=== PATIENT | male | born 1955 | race Caucasian/White ===

== ENCOUNTER 2022-04-05 20:19 | Outpatient (CLI) | payer MEDICAID, SELFPAY | END 2022-04-05 20:20 | disposition home or self-care (01) | LOC: AMB 04-25 12:31 | PROVIDERS: PCP Family Medicine; Visit Provider Emergency Medicine Emergency Medical Services | DX: E11.649 Type 2 diabetes mellitus with hypoglycemia without coma (principal); R41.82 Altered mental status, unspecified | CPT/HCPCS: A0425; A0427 ==

== ENCOUNTER 2022-04-05 21:06 | Emergency (ER) | payer MEDICAID, SELFPAY ==
--- NOTE | 2022-04-05 21:08 | ED.GENADULT ---
HPI - General Adult General Chief complaint: Unspecified Complaint, Adult Stated complaint: Low Blood Sugar, Fall Time Seen by Provider: 04/05/22 21:08 History of Present Illness HPI narrative: This 66-year-old male comes in by ambulance initially with a trauma team activation. The patient was not responding at home in the garage when the ambulance arrived. They found his blood glucose to be at 40. An IV was established and he received 200 mL of D10. His glucose improved to around 150 and he responded completely except he could not remember what happened until just a few minutes before arriving here. He does not report any pain or injury event. He states that he feels back to normal at this time. He does use insulin 35 units and takes oral medication also. The patient does speak Hong Konger but has some difficulty understanding at times because of anguish being his 2nd language. Review of Systems Status of ROS: Reports: 10 or more systems reviewed and unremarkable except as noted in History and below Narrative: Constitutional: No fevers, no weight gain or loss. Eyes: No discharge. No vision changes. HENT: No congestion, no sore throat, no ear pain. Cardiovascular: No chest pain, no palpitations. Respiratory: No shortness of breath, no wheezes, no cough. Gastrointestinal: No abdominal pain, no vomiting, no diarrhea. Genitourinary: No dysuria, no hematuria. Musculoskeletal: Normal range of motion. Skin: No rashes, no pruritis. Neurological: No dizziness, weakness, sensory change, speech change. Endo/Heme/Allergies: No bruising or bleeding. No polydipsia. Pysch: no suicidality, no anxiety, no insomnia. All other systems reviewed and are negative. [facility] Medical History (Updated 04/05/22 @ 22:12 by Angelo Yates MD) DM (diabetes mellitus), type 2 Social History Smoking Status: Never smoker Do you use any of these nicotine containing products: None How often do you have a drink containing alcohol: never AUDIT-C Alcohol total score: 0 Non-prescribed substance use: denies use Exam Narrative: Exam Narrative: Constitutional: Well-developed, well-nourished, no acute distress. HEENT: Normocephalic, atraumatic. Neck: Normal range of motion. Nontender. Supple. Heart: Regular. No murmurs. Normal rate. Intact distal pulses. Lungs: Clear to auscultation. No chest discomfort. No wheezes, rhonchi, or rales. Abdomen: Normal bowel sounds. Nontender. No rebound tenderness. Genitalia: Deferred. Back: No midline tenderness. Normal range of motion. Extremities: Normal range of motion. No injury. Skin: Intact. No rash. Warm. No erythema or pallor. Neurologic: No altered sensation. No weakness. Alert and oriented. [id number] is normal. Strength is equal bilaterally in upper and lower extremities. No facial asymmetry. Psychiatric: No suicidality. No anxiety or depression. No insomnia. Nursing notes and vitals signs are reviewed. Medical Decision Making MDM Narrative Medical decision making narrative: This patient arrives with a trauma team activation but there was really was no trauma so this was discontinued. He had a hypoglycemic event which resolved after receiving IV dextrose. He continues to feel normal. Labs were drawn here which showed a glucose in normal range. The patient states that he is taking 35 units of insulin daily. I advised him to decrease this to 30 or even 25 units and follow-up with his primary physician. Family members have arrived and state that he has had previous hypoglycemic events. The patient states that he did not take anything to eat this evening and was working out in the shed. He is okay to be discharged home and encouraged strongly to follow up with his primary physician. Lab Data Labs: Lab Results 04/05/22 04/05/22 Range/Units 21:13 21:13 WBC 11.88 H (4.50-11.00) K/uL RBC 4.41 (4.30-5.90) m/uL Hgb 11.2 L (13.5-17.5) gm/dL Hct 35.3 L (37.0-53.0) % MCV 80 (80-100) fL MCH 25 L (26-34) pg MCHC 32 (32-36) gm/dL RDW Coeff of Kiesha 14.6 (11.5-15.5) % Plt Count 369 (140-440) K/uL Neut % (Auto) 82.9 H (42.0-72.0) % Lymph % (Auto) 12.6 L (20-44) % [place] % (Auto) 3.8 (0.0-11.0) % Eos % (Auto) 0.2 (0.0-7.0) % Baso % (Auto) 0.2 (0.0-3.0) % Neut # (Auto) 9.80 H (1.7-7.0) K/uL Lymph # (Auto) 1.50 (0.90-2.90) K/uL [place] # (Auto) 0.50 (0.00-0.90) K/UL Eos # (Auto) 0.00 (0.00-0.50) K/uL Baso # (Auto) 0.00 (0.00-0.30) K/uL Abs Immat Gran (auto) 0.03 (0.00-0.30) K/uL Sodium 134 L (135-149) mmol/L Potassium 4.2 (3.6-5.1) mmol/L Chloride 99 (96-114) mmol/L Carbon Dioxide 27 (20-32) mmol/L BUN 12 (7-30) mg/dL Creatinine 0.5 (0.5-1.5) mg/dL Estimated GFR 114 ml/min Glucose 116 H (60-115) mg/dL Calcium 8.7 (8.4-10.6) mg/dL Discharge Plan Discharge Clinical Impression: Hypoglycemic reaction Condition: Improved Additional Instructions: Hypoglycemic reaction. Decrease insulin by 5-10 units and follow-up with primary physician to review glucose management medications. Return if recurrent symptoms happen. Follow Up/Referrals: Lopez Neves MD [Primary Care Provider] - Stand Alone Forms: [employer] Info Instructions
[2022-04-05 21:20] LABS: Basophils Percent Auto 0.2 % (0.0-3.0); Eosinophils Percent Auto 0.2 % (0.0-7.0); Hematocrit 35.3 % (37.0-53.0); Hemoglobin* 11.2 gm/dL (13.5-17.5); Immature Granulocytes Abs Auto 0.03 K/uL (0.00-0.30); Lymphocytes Percent Auto 12.6 % (20-44); Mean Corpuscular HGB Conc 32 gm/dL (32-36); Mean Corpuscular Hemoglobin 25 pg (26-34); Mean Corpuscular Volume 80 fL (80-100); Monocytes Percent Auto 3.8 % (0.0-11.0); Neutrophils Percent Auto 82.9 % (42.0-72.0); Platelet Count* 369 K/uL (140-440); RDW Coefficient of Variation % 14.6 % (11.5-15.5); Red Blood Count 4.41 m/uL (4.30-5.90); White Blood Count* 11.88 K/uL (4.50-11.00)
[2022-04-05 21:23] LABS: Slide Review Reflex No
[2022-04-05 21:31] LABS: Chloride* 99 mmol/L (96-114); Potassium* 4.2 mmol/L (3.6-5.1); Sodium* 134 mmol/L (135-149)
[2022-04-05 21:33] LABS: Creatinine* 0.5 mg/dL (0.5-1.5); Estimated Glomerular Filt Rate 114 ml/min
[2022-04-05 21:34] LABS: Blood Urea Nitrogen* 12 mg/dL (7-30); Calcium* 8.7 mg/dL (8.4-10.6); Carbon Dioxide* 27 mmol/L (20-32); Glucose* 116 mg/dL (60-115)
[2022-04-05 22:20] VITALS: PULSE 78; RESP 18; TEMP 36.1; O2SAT 98
== END 2022-04-05 22:30 | disposition home or self-care (01) ==
LOC: ED 22:14
PROVIDERS: Emergency Provider Emergency Medicine Emergency Medical Services; PCP Family Medicine
DX: E11.649 Type 2 diabetes mellitus with hypoglycemia without coma (principal)
CPT/HCPCS: 36415; 80048; 85025; 99283; 99284; 99291; G0390

== ENCOUNTER 2022-06-15 14:36 | Outpatient (CLI) | payer MEDICAID, SELFPAY ==
--- OUTSIDE RECORDS SUMMARY | 2022-06-21 10:34 | XMS_ITS | Encounter Summary ---
[...] bivalent booster, PF, 30 mcg/0.3 mL dose ([employer]) 06/07/2022?0.3 COVID-19, mRNA, LNP-S, PF, 30 mcg/0.3 mL dose ([employer]) 07/19/2021?0.3 mL COVID-19, mRNA, LNP-S, PF, 30 mcg/0.3 mL dose, soila-sucrose ([employer]) 12/27/2021?0.3 01/10/2022?0.3 Social History None recorded. Functional Status Unknown. 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 History of Present Illness Note: <div>Requesting Covid 19 vaccine, bivalent last booster 09/18/2020</div><div>
</div> Review of Systems None recorded. Physical Exam ? Notes: <div>A&O x 3, No acute distr ess. Well-appearing.</div>
--- OUTSIDE RECORDS SUMMARY | 2022-06-21 10:34 | XMS_ITS | Clinical Summary ---
:1955 Author Organization [employer] [place] [address] Care Team Providers Name Role Phone Hai Engle MD Primary Care Provider [phone] Allergies Active Allergy Reactions Severity Noted [...] once daily. tabletIndications: Vitamin B12 deficiency Insulin Hana, As directed. For 100 Each 08/22/20 Active [...] use of insulin (HC) insulin NPH Inject 20-30 20 mL 05/28/20 [...] Take 1 Tablet (2 120 Tablet 0 06/18/20 Active (Dilaudid) 2 mg mg) by mouth 22 tabletIndications: every 6 hours if Neuropathic pain needed for Pain. For chronic leg pain insulin For administering 200 Each 08/22/20 Di [...] 1 Tablet (2 120 Tablet 0 05/18/20 Discontinued (Dilaudid) 2 mg mg) by mouth [...] Encounters Date Type Specialty Care Team Description 06/16/2022 Refill Hai Engle Refil l Request (Jose DENNIS (Dilaudid) 2 mg tablet) 05/29/2022 Telephone Hai Engle Resul ts MD 05/28/2022 Office Visit Hai Engle Diabe tes MD 05/28/2022 Travel 05/17/2022 Refill Lopez Neves Refjayant Request (Jose DENNIS (Dilaudid) 2 mg tablet) 04/16/2022 Refill Lopez Neves, Refill Request (Jose DENNIS (Dilaudid) 2 mg tablet) from Last 3 Months Immunizations Name Administration Dates Next Due COVID-19 vaccine (Moderna 01/05/2021, 12/08/2020 100mcg/0.5mL) PF, MDV COVID-19 vaccine ([employer] 07/19/2021 30mcg/0.3mL) PF, MDV Hepatitis A (Adult) [...] Description 08/23/2022 [place] [address] [address] [place], [place] [address] (Wo rk) 08/28/2022 Office Visit Hai Engle MD [address] [place], [place] [address] (Wo rk) Health Maintenance Due Date Last Done Comments AAA screening age 55-77 2012 Pneumococcal series for age 65+ (2 12/29/2014 12/29/2013, 0 04/16/2012 - PCV) Zoster (shingles) series for age 0501/20/2019 11/25/2018 50+ (2 of 2) COVID-19 vaccine series (5 - 02/21/2022 12/27/2021, 021, Booster for Moderna series) 01/05/2021, Addition al history exists Influenza for age 65+ 2022 06/12/2021, 06/06/2020, 07/06/2019, Additional history exists Depression screening for age 12+ 08/22/2022 08/22/2021, 10/2019, 06/06/2020, Additional history exists BMI (ht and wt on same day) for 11/21/2022 11/21/2021, 08/09, age 18+ 07/11/2021, Additional history exists Colonoscopy through age 75 05/19/2023 05/19/2013, 09/10/201 3 Lipids for age 45-75 05/28/2027 05/28/2022, 11/21/2021, 06/12/2021, Additional history exists Tetanus booster 11/25/2028 11/25/2018, 04/03/2012 Tdap Completed 04/03/2012 Hepatitis C screening for age Completed 11/21/2021 18-79 Procedures Procedure Name Priority Date/Time Associated Comments [...] REFLEX MEASURED LDL (05/28/2022 10:54 AM CDT) [facility] Method Time Signature CHOLESTEROL,TOTAL 111 100 - 199 05/28/2022 [facility] TH mg/dL 9:29 PM CDT LABORATORY-[facility] TRAL LABORATORY TRIGLYCERIDES 75 <150 05/28/2022 [facility] mg/dL 9:29 PM CDT LAB[facility]ATORY-[facility] TRAL LABORATORY HDL CHOLESTEROL 41 >40 mg/dL 05/28/2022 [facility] 9:29 PM CDT LABORATORY-[facility] TRAL LABORATORY NON-HDL 70 <145 05/28/2022 [facility] CHOLESTEROL mg/dl 9:29 PM CDT LABORATORY-[facility] TRAL LABORATORY CHOL/HDL RATIO 2.71 <4.50 05/28/2022 [facility] 9:29 PM CDT LABORATORY-[facility] TRAL LABORATORY LDL CHOLESTEROL 55 <=130 05/28/2022 [facility] mg/dL 9:29 PM CDT LABORAT[facility] TRAL LABORATORY VLDL CHOLESTEROL 15 <=30 05/28/2022 [facility] mg/dL 9:29 PM CDT LABORAT[facility] TRAL LABORATORY PROVIDER ORDERED RANDOM 05/28/2022 [facility] STATUS 9:29 PM CDT LABORAT[facility] TRAL LABORATORY Specimen Anatomical Collection Method / Collection Time Recei bowen Time (Source) Location / Volume Laterality Blood BLOOD SPECIMEN / Venipuncture / 05/28/2022 10:54 05/28 Unknown Unknown AM CDT 11:34 AM CDT Hai Engle MD CHEMISTRY Performing Organization Address City/State/ZIP Code Phon e Number [employer] [address] [place] [address] LABORATORY-CENTRAL 2000 LABORATORY URINE ALBUMIN TO CREATININE RATIO, RANDOM (05/28/2022 10:54 AM CDT) P athologist Signature ALB RAND URINE <5.0 mg/L 05/29/2022 [facility] AM [facility] LAB[facility]-CENT RAL LABORATORY CREATININE,URIN 0.32 g/L 05/29/2022 [facility] [employer] E 4:55 AM CDT LABORATORY-CENT RAL LABORATORY ALBUMIN TO 05/29/2022 [facility] [employer] CREATININE 4:55 AM CDT LABORATORY-CENT RATIO,RAND UR RAL LABORATORY Comment: Urine Albumin below measurement range, unable to calculate Specimen Anatomical Collection Method Collection Time Receive d Time (Source) Location / / Volume Laterality Urine URINE SPECIMEN / Non-Blood / 05/28/2022 10:54 022 Unknown Unknown AM CDT 10:54 AM CDT Narrative [facility] LABORATORY-CENTRAL LABORAT ORY - 05/29/2022 4:55 AM [...] Organization Address City/State/ZIP Code Phon e Number [facility] [address] [place] [address] LABORATORY-CENTRAL 2000 LABORATORY ALT (SGPT) (05/28/2022 10:54 AM CDT) athologist Signature ALT (SGPT) 16 8 - 45 IU/L 05/28/2022 [facility] 9:29 PM CDT LAB[facility]ATORY-[facility] LABORATORY Specimen Anatomical Collection Method / Collection Time Recei bowen Time (Source) Location / Volume Laterality Blood BLOOD SPECIMEN / Venipuncture / 05/28/2022 10:54 05/28 Unknown Unknown AM CDT 11:34 AM CDT Hai Engle MD CHEMISTRY Performing Organization Address [facility] Code Phon e Number [facility] [address] [place] [address] LABORATORY-CENTRAL 2000 LABORATORY HEMOGLOBIN A1C MONITORING (POCT) (05/28/2022 10:54 AM CDT) athologist Signature HEMOGLOBIN A1C 5.8 <=6.4 % 05/28/2022 [facility] MONITORING 11:03 AM CDT [facility] Specimen Anatomical Collection Method / Collection Time Recei bowen Time (Source) Location / Volume Laterality Blood BLOOD SPECIMEN / Venipuncture / 05/28/2022 10:54 05/28 Unknown Unknown AM CDT 10:54 AM CDT [facility] - 2021 11:03 AM CDT ? (<=6.9%) [...] Organization Address City/State/ZIP Code Phon e Number [facility] [address] [place] [address] (ABNORMAL) BASIC METABOLIC PANEL (05/28/2022 10:54 AM CDT) [facility] Method Time Signature SODIUM 136 135 [...] ANION GAP 11 5 - 18 05/28/2022 [facility] 9:27 PM CDT LABORATORY-[facility] TRAL LABORATORY GLUCOSE 140 (H) 65 - 100 05/28/2022 [facility] mg/dL 9:27 PM CDT LABORATORY-[facility] TRAL LABORATORY CALCIUM 8.9 8.5 - 10.5 05/28/2022 [facility] mg/dL 9:27 PM CDT LABORATORY-[facility]ILY TRAL LABORATORY BUN 15 8 - 25 05/28/2022 [facility] mg/dL 9:27 PM CDT LABORATORY-[facility] TRAL LABORATORY CREATININE 0.69 (L) 0.72 - 05/28/2022 [facility] 1.25 mg/dL 9:27 PM CDT LABORATORY-[facility] TRAL LABORATORY BUN/CREAT RATIO 22 (H) 10 - 20 05/28/2022 [facility] 9:27 PM CDT LABORATORY-[facility] TRAL LABORATORY eGFR >90 >90 05/28/2022 [facility] mL/min/1.7 9:27 PM CDT LABORATORY-EMILY 3m2 [...] Organization Address City/State/ZIP Code Phon e Number [facility] [address] [place] [address] LABORATORY-CENTRAL 2000 LABORATORY from Last 3 Months Insurance Payer Benefit Plan / Subscriber ID Effective Dates Phone Addre ss Type Group WC WORKERS COMP WC CARDOZO [id number] 2020-Prese [address] [place] [address] MEDICAID [place] MEDICA[place] [id number] 2019-Presen [address] [address] t [place] [address] [employer] [id number] 2021- [facility] [address] ATTN: [place] [address] Advance Directives Latest Code Status on File Code Status Date Activated Date Inactivated Comments Full Code 04/22/2012 2:22 PM 04/30/2012 3:32 PM Full Code 04/15/2012 9:20 PM 04/22/2012 2:22 PM Care Teams Category Analyst Relationship Specialty Start Date End Date Hai Engle MD PCP - General Family Practice 05/18/22 [address] [place] [address]
--- OUTSIDE RECORDS SUMMARY | 2022-06-21 10:34 | XMS_ITS ---
[...] SARS-CoV-2 mRNA Vaccin e MARVIN Silver: [address] [place] [address], Ph. 12/27/2021 Administration of Second Dose of SARS-Co V-2 mRNA Vaccine; Administration of SARS-CoV-2 mRNA Vaccine [facility]IN [facility]: [address] [facility] [place] [address], Ph. 07/19/2021 Administration of SARS-CoV-2 mRNA Vaccin e MARVIN Silver: [address] [place] [address], Ph. Social History None recorded. Vaccine List Vaccine Type COVID-19, mRNA, LNP-S, bivalent booster, PF, 30 mcg/0.3 mL dose ([employer]) 06/07/2022?0.3 COVID-19, mRNA, LNP-S, PF, 30 mcg/0.3 mL dose ([employer]) 07/19/2021?0.3 mL COVID-19, mRNA, LNP-S, PF, 30 mcg/0.3 mL dose, soila-sucrose ([employer] M[employer]) 12/27/2021?0.3 01/10/2022?0.3 Plan of Care Patient Instructions May take Ibuprofen or Tylenolprn. Use i ce to arm prn. Reminders Provider Appointments None recorded. ? ? Lab None recorded. ? ? Referral None recorded. ? ? Procedures None recorded. ? ? Surgeries None recorded. ? ? Imaging None recorded. ? ? Vitals None recorded.
--- OUTSIDE RECORDS SUMMARY | 2022-07-30 08:09 | XMS_ITS ---
[...] SARS-CoV-2 mRNA Vaccin e MARVIN Silver: [address] [place] [address], Ph. 12/27/2021 Administration of Second Dose of SARS-Co V-2 mRNA Vaccine; Administration of SARS-CoV-2 mRNA Vaccine MARVIN Silver: [address] [place] [address], Ph. 07/19/2021 Administration of SARS-CoV-2 mRNA Vaccin e MARVIN Silver: [address] [place] [address], Ph. Social History None recorded. Vaccine List Vaccine Type COVID-19, mRNA, LNP-S, bivalent booster, PF, 30 mcg/0.3 mL dose ([employer] 06/07/2022?0.3 COVID-19, mRNA, LNP-S, PF, 30 mcg/0.3 mL dose ([employer] 07/19/2021?0.3 mL COVID-19, mRNA, LNP-S, PF, 30 mcg/0.3 mL dose, soila-sucrose ([employer] 12/27/2021?0.3 01/10/2022?0.3 Plan of Care Patient Instructions May take Ibuprofen or Tylenolprn. Use i ce to arm prn. Reminders Provider Appointments None recorded. ? ? Lab None recorded. ? ? Referral None recorded. ? ? Procedures None recorded. ? ? Surgeries None recorded. ? ? Imaging None recorded. ? ? Vitals None recorded.
--- OUTSIDE RECORDS SUMMARY | 2022-07-30 08:09 | XMS_ITS | Encounter Summary ---
[...] bivalent booster, PF, 30 mcg/0.3 mL dose (PfizerOrckestraBioNTech) 06/07/2022?0.3 COVID-19, mRNA, LNP-S, PF, 30 mcg/0.3 mL dose (Pf[employer]ck[employer]BioNTech) 07/19/2021?0.3 mL COVID-19, mRNA, LNP-S, PF, 30 mcg/0.3 mL dose, soila-sucrose ([employer]) 12/27/2021?0.3 01/10/2022?0.3 Social History None recorded. Functional Status Unknown. Past Encounters 06/06/2022 Administration of SARS-CoV-2 mRNA Lucio Carbajal, BAKERY ASSISTANT: [address] [place] [address], Ph. History of Present Illness Note: <div>Requesting Covid 19 vaccine, bivalent last booster 09/18/2020</div><div>
</div> Review of Systems None recorded. Physical Exam ? Notes: <div>A&O x 3, No acute distr ess. Well-appearing.</div>
--- OUTSIDE RECORDS SUMMARY | 2022-07-30 08:09 | XMS_ITS | Clinical Summary ---
:1955 Author Organization [employer] [facility] [place] [address] Care Team Providers Name Role Phone Hai Engle MD Primary Care Provider [phone] Allergies Active Allergy Reactions Severity Noted [...] once daily. tabletIndications: Vitamin B12 deficiency Insulin [place], As directed. For 100 Each 08/22/20 Active [...] Take 1 Tablet (2 120 Tablet 0 07/11/20 Active (Dilaudid) 2 mg mg) by mouth 22 tabletIndications: every 6 hours if Neuropathic pain needed for Pain. For chronic leg pain-fill on or after 07/16/22 multivitamin with 0 06/15/20 Ac tive folic acid 0.4 mg 22 (Tab-A-Shell) HYDROmorphone Take 1 Tablet (2 120 Tablet 0 06/18/20 Discontinued (Dilaudid) 2 mg mg) by mouth 22 022 ( Reorder tabletIndications: every 6 hours if (E-cancel not Neuropathic pain needed for Pain. sent)) For chronic leg pain amoxicillin-clavul Take 1 Tablet by 14 Tablet 0 07/13/2007/10 Discontinued anate 875-125 mg mouth two times 22 022 (*Med tablet daily with meals com plete/Regime (AUGMENTIN)Indicat for 7 days. n ions: Diabetic compl ete/Level foot infection of ca re change) (HC) Active Problems Problem Noted Date Type 2 [...] Encounters Date Type Specialty Care Team Description 07/20/2022 Office Visit Tim Rosenberg, Follow Up (toe) 07/20/2022 Travel 07/13/2022 Office Visit Tim Rosenberg, Toe Jonathan n/problem (Left 2nd MD toe. Had been black, has been treating w ith bacitracin zinc ointment a nd tegaderm. Toe is just a l ittle red currently) 07/13/2022 Travel 07/11/2022 Refill Hai Engle, Refil l Request (dilaudzeke) 06/16/2022 Refill Hai Engle, Refil l Request (Jose DENNIS (Dilaudid) 2 mg tablet) 05/29/2022 Telephone Hai Engle Resul ts MD 05/28/2022 Office Visit Hai Engle Diabe tes MD 05/28/2022 Travel 05/17/2022 Refill Lopez Neves, Refill Request (rFankirpmari DENNIS (Dilaudid) 2 mg tablet) from Last 3 Months Immunizations Name Administration Dates Next Due COVID-19 vaccine (Moderna 01/05/2021, 12/08/2020 100mcg/0.5mL) PF, MDV COVID-19 vaccine ([employer] 06/07/2022 30mcg/0.3mL) 12YO+ BIVALENT BOOSTER PF, MDV COVID-19 vaccine ([employer] 01/10/2022 30mcg/0.3mL) 12YO+ JACINTA-SUCROSE PF, MDV COVID-19 vaccine ([employer] 07/19/2021 30mcg/0.3mL) PF, MDV Hepatitis A (Adult) 11/25/2018 Hepatitis B (Adult) 08/25/2015 Influenza, IIV3 (Age >=3 years) 07/02/2013, 04/06/2012 Influenza, IIV4 06/12/2021, 06/06/2020, 07/06/2019, 06/23/2018, 06/05/2017, 06/18/2016, 08/25/2015 Influenza, IIV4 (=>6mos) MDV 06/25/2022, 06/24/2018, 014 MMR 11/25/2018 Pneumococcal Poly,23-Valent 12/29/2013, 04/16/2012 (Pneumovax) [...] in contact with No / Unsu re 07/20/2022 2:46 PM DRIER BELT CONVEYOR someone who was confirmed or suspected to have Coronavirus/COVID-19? Obstetrics History Last Filed Vital Signs Vital Sign Reading Time Taken Comments Blood Pressure 136/77 07/20/2022 3:02 PM DRIER BELT CONVEYOR Pulse 61 07/20/2022 3:00 PM DRIER BELT CONVEYOR Temperature 36.6 ??C (97.8 ??F) 07/13/2022 2:30 PM CDT Respiratory Rate 20 03/19/2022 12:06 PM CDT Oxygen Saturation 100% 07/20/2022 3:00 PM DRIER BELT CONVEYOR Inhaled Oxygen Concentration - - Weight 80.9 kg (178 lb 6.4 oz) 07/20/2022 3:00 PM DRIER BELT CONVEYOR Height 167.6 cm (5' 6) 11/21/2021 9:43 AM CDT Body Mass Index 28.79 11/21/2021 9:43 AM CDT Plan of Treatment Upcoming Encounters Date Type Specialty Care Team Description 08/23/2022 [place] [address] [address] [place], [place] [address] (Wo rk) 08/28/2022 Office Visit Hai Engle MD [address] [place] [address] (Wo rk) Health Maintenance Due Date Last Done Comments HIV for age 15-65 1972 AAA screening age 55-77 2012 Pneumococcal series for age 65+ (2 12/29/2014 12/29/2013, 0 04/16/2012 - PCV) Zoster (shingles) series for age 0501/20/2019 11/25/2018 50+ (2 of 2) Depression screening for age 12+ 08/22/2022 08/22/2021, [...] Completed 11/21/2021 18-79 COVID-19 vaccine series Completed 06/07/2022, 01/10/2022, 07/19/2021, Additional history exists Influenza for age 65+ Completed 06/25/2022, 06/12/2021, 06/06/2020, Additional history exists Procedures Procedure Name Priority [...] REFLEX MEASURED LDL (05/28/2022 10:54 AM CDT) [facility] Method Time Signature CHOLESTEROL,TOTAL 111 100 - 199 05/28/2022 [facility] mg/dL 9:29 PM CDT LABORATORY-EMILY TRAL LABORATORY TRIGLYCERIDES 75 <150 05/28/2022 [facility] mg/dL 9:29 PM CDT LABORATORY-EMILY TRAL LABORATORY HDL CHOLESTEROL 41 >40 mg/dL 05/28/2022 [facility] 9:29 PM CDT LABORATORY-EMILY TRAL LABORATORY NON-HDL 70 <145 05/28/2022 [facility] CHOLESTEROL mg/dl 9:29 PM CDT LABORATORY-EMILY TRAL LABORATORY CHOL/HDL RATIO 2.71 <4.50 05/28/2022 [facility] 9:29 PM CDT LABORATORY-EMILY TRAL LABORATORY LDL CHOLESTEROL 55 <=130 05/28/2022 [facility] mg/dL 9:29 PM CDT LABORATORY-EMILY TRAL LABORATORY VLDL CHOLESTEROL 15 <=30 05/28/2022 [facility] mg/dL 9:29 PM CDT LABORATORY-EMILY TRAL LABORATORY PROVIDER ORDERED RANDOM 05/28/2022 [facility] STATUS 9:29 PM CDT LABORATORY-EMILY TRAL LABORATORY Specimen Anatomical Collection Method / Collection Time Recei bowen Time (Source) Location / Volume Laterality Blood BLOOD SPECIMEN / Venipuncture / 05/28/2022 10:54 05/28 Unknown Unknown AM CDT 11:34 AM CDT aHi Engle MD CHEMISTRY Performing Organization Address City/State/ZIP Code Phon e Number [facility] [address] [place] [address] LABORATORY-CENTRAL 2000 LABORATORY URINE ALBUMIN TO CREATININE RATIO, RANDOM (05/28/2022 10:54 AM CDT) P athologist Signature ALB RAND URINE <5.0 mg/L 05/29/2022 [facility] 4:55 AM CDT LABORATORY-CENT RAL LABORATORY CREATININE,URIN 0.32 g/L 05/29/2022 [facility] E 4:55 AM CDT LABORATORY-CENT RAL LABORATORY ALBUMIN TO 05/29/2022 [facility] CREATININE 4:55 AM CDT LABORATORY-CENT RATIO,RAND UR RAL LABORATORY Comment: Urine Albumin below measurement range, unable to calculate Specimen Anatomical Collection Method Collection Time Receive d Time (Source) Location / / Volume Laterality Urine URINE SPECIMEN / Non-Blood / 05/28/2022 10:54 022 Unknown Unknown AM CDT 10:54 AM CDT Narrative [facility] LABORATORY-CENTRAL LABORAT ORY - 05/29/2022 4:55 AM [...] Organization Address City/State/ZIP Code Phon e Number [facility] [address] [place] [address] LABORATORY-CENTRAL 2000 LABORATORY ALT (SGPT) (05/28/2022 10:54 AM CDT) athologist Signature ALT (SGPT) 16 8 - 45 IU/L 05/28/2022 [facility] 9:29 PM CDT LABORATORY-[facility] LABORATORY Specimen Anatomical Collection Method / Collection Time Recei bowen Time (Source) Location / Volume Laterality Blood BLOOD SPECIMEN / Venipuncture / 05/28/2022 10:54 05/28 Unknown Unknown AM CDT 11:34 AM CDT Hai Engle MD CHEMISTRY Performing Organization Address City/State/ZIP Code Phon e Number [facility] [address] [place] [address] LABORATORY-CENTRAL 2000 LABORATORY HEMOGLOBIN A1C MONITORING (POCT) (05/28/2022 10:54 AM CDT) athologist Signature HEMOGLOBIN A1C 5.8 <=6.4 % 05/28/2022 [facility] MONITORING 11:03 AM CDT [place] (POCT) [facility] Specimen Anatomical Collection Method / Collection Time Recei bowen Time (Source) Location / Volume Laterality Blood BLOOD SPECIMEN / Venipuncture / 05/28/2022 10:54 05/28 Unknown Unknown AM CDT 10:54 AM CDT [facility] - 2021 11:03 AM CDT ? [...] Organization Address City/State/ZIP Code Phon e Number [facility] [address] [place] [address] (ABNORMAL) BASIC METABOLIC PANEL (05/28/2022 10:54 AM CDT) [facility] Method Time Signature SODIUM 136 135 [...] GLUCOSE 140 (H) 65 - 100 05/28/2022 [facility] mg/dL 9:27 PM CDT LABORATORY-EMILY TRAL LABORATORY CALCIUM 8.9 8.5 - 10.5 05/28/2022 [facility] mg/dL 9:27 PM CDT LABORATORY-EMILY TRAL LABORATORY BUN 15 8 - 25 05/28/2022 [facility] mg/dL 9:27 PM CDT LABORATORY-EMILY TRAL LABORATORY CREATININE 0.69 (L) 0.72 - 05/28/2022 [facility] 1.25 mg/dL 9:27 PM CDT LABORATORY-EMILY [...] Address City/State/ZIP Code Phon e Number [email or web address] [address] [place] [address] LABORATORY-CENTRAL 2000 LABORATORY from Last 3 Months Insurance Payer Benefit Plan / Subscriber ID Effective Dates Phone Addre ss Type Group WC WORKERS COMP WC CARDOZO [id number] 2020-Prese [address] [place] [address] MEDICAID [place] MEDICAID [place] [id number] 2019-Presen [address] [address] t [place] [address] [employer] [id number] 2021- [facility] [address] ATTN: [place] [address] Advance Directives Latest Code Status on File Code Status Date Activated Date Inactivated Comments Full Code 04/22/2012 2:22 PM 04/30/2012 3:32 PM Full Code 04/15/2012 9:20 PM 04/22/2012 2:22 PM Care Teams End Lathe Operator Relationship Specialty Start Date End Date Hai Engle MD PCP - General Family Practice 05/18/22 [address] [place] [address]
== END 2022-06-15 14:37 | disposition home or self-care (01) ==
LOC: AMB 07-30 08:07
PROVIDERS: PCP Family Medicine; Visit Provider Family Medicine
DX: I46.9 Cardiac arrest, cause unspecified (principal)
CPT/HCPCS: A0425; A0433

== ENCOUNTER 2022-06-15 15:08 | Emergency (ER) | payer MEDICAID, SELFPAY ==
[2022-06-15] VITALS (7 sets, daily range): BP systolic 107–151; BP diastolic 62–76; PULSE 66–75; RESP 12–18; TEMP 36.4; O2SAT 97–100; BMI 29.2
--- OUTSIDE RECORDS SUMMARY | 2022-06-15 15:55 | XMS_ITS | Clinical Summary ---
:1955 Author Organization [facility] [place] [address] Care Team Providers Name Role Phone Hai Engle MD Primary Care Provider [phone] Allergies Active Allergy Reactions Severity Noted Date Comments Ibuprofen Nausea Only 06/06/2012 Medications Medication Sig Dispensed Refills Start End Status Date Date aspirin enteric Take 1 tablet by 0 06/15/20 Active coated (ECOTRIN) mouth once daily 16 325 mg with a meal. tabletIndications: Mouth droop due to facial weakness mupirocin 2% Apply topically 30 g 5 07/06/20 A ctive topical (BACTROBAN to affected 19 OINTMENT) area(s) 2 times ointmentIndication daily. Until s: Leg ulcer, wound has healed right, limited to breakdown of skin (HC) cyanocobalamin Take 1 Tablet 30 Tablet 0 12/06/19 A ctive (Vitamin B-12) (1,000 mcg) by 21 1,000 mcg mouth once daily. tabletIndications: Vitamin B12 deficiency Insulin Union, As directed. For 100 Each 08/22/20 Active Disposable, ([place]asta administering 21 Pen Needle) 32 insulin at home gauge x twice daily. Indications: Type 2 diabetes mellitus with diabetic polyneuropathy, with long-term current use of insulin (HC) lancets (Microlet Test 1-2 times 100 Each 4 08/22/20 Active Lancet)Indications per day. 21 : Type 2 diabetes mellitus with diabetic polyneuropathy, with long-term current use of insulin (HC) simvastatin Take 1 Tablet (20 90 tablet. 3 08/22/20 Active (ZOCOR) 20 mg mg) by mouth at 21 tabletIndications: bedtime. Hyperlipidemia, unspecified hyperlipidemia type gabapentin Take 2 Capsules 540 capsule. 2 10/18/19 Active (NEURONTIN) 400 mg (800 mg) by mouth 22 capsuleIndications 3 times daily. : Neuropathic pain Wait until they call for this. metFORMIN Take 1 Tablet 180 tablet. 2 10/18/19 Acti ve (GLUCOPHAGE) 1,000 (1,000 mg) by 22 mg mouth 2 times tabletIndications: daily with meals. Type 2 diabetes mellitus with diabetic polyneuropathy, with long-term current use of insulin (HC) lisinopriL Take 1 Tablet (5 90 tablet. 2 10/18/19 A ctive (PRINIVIL; mg) by mouth once 22 ZESTRIL) 5 mg daily. tabletIndications: Essential hypertension multivitamin with Take 1 Tablet by 90 Tablet 2 11/22/19 Active folic acid 0.4 mg mouth once daily. 22 (Tab-A-Shell)Indica tions: Type 2 diabetes mellitus with diabetic polyneuropathy, with long-term current use of insulin (HC) HYDROmorphone Take 1 Tablet (2 120 Tablet 0 05/18/20 Active (Dilaudid) 2 mg mg) by mouth 22 tabletIndications: every 6 hours if Neuropathic pain needed for Pain. For chronic leg pain insulin NPH Inject 20-30 20 mL 05/28/20 Activ e isophane, U-100, units SQ before 22 (NovoLIN N NPH breakfast and U-100 Insulin) 100 10-20 units at unit/mL susp dinner injectionIndicatio ns: Type 2 diabetes mellitus with diabetic nephropathy, with long-term current use of insulin (HC), Type 2 diabetes mellitus with diabetic polyneuropathy, with long-term current use of insulin (HC) insulin For administering 200 Each 05/28/20 Ac tive syringe-needle insulin at home. 22 u-100 0.3 mL 31 Currently gauge x injecting twice 01/22Indications: daily Type 2 diabetes mellitus with diabetic nephropathy, with long-term current use of insulin (HC), Type 2 diabetes mellitus with diabetic polyneuropathy, with long-term current use of insulin (HC) blood sugar TrueBalance test 100 Each 05/28/20 A ctive diagnostic (Blood strips. Test 1-2 22 Glucose Test) times per day. stripIndications: Type 2 diabetes mellitus with diabetic nephropathy, with long-term current use of insulin (HC), Type 2 diabetes mellitus with diabetic polyneuropathy, with long-term current use of insulin (HC) insulin For administering 200 Each 08/22/20 Di scontinued syringe-needle insulin at home. (Reorder u-100 0.3 mL 31 Currently (E-c ancel not gauge x injecting twice sent )) 01/22Indications: daily Type 2 diabetes mellitus with diabetic polyneuropathy, with long-term current use of insulin (HC) blood sugar TrueBalance test 100 Each 08/22/20 D iscontinued diagnostic (Blood strips. Test 1-2 (Reorder Glucose Test) times per day. ( E-cancel not stripIndications: se nt)) Type 2 diabetes mellitus with diabetic polyneuropathy, with long-term current use of insulin (HC) insulin NPH Inject 25-35 20 mL 02/21/20 Disco ntinued isophane, U-100, units SQ before (Reorder (NovoLIN N NPH breakfast and ( E-cancel not U-100 Insulin) 100 15-20 units at sent)) unit/mL susp dinner injectionIndicatio ns: Type 2 diabetes mellitus with diabetic polyneuropathy, with long-term current use of insulin (HC) HYDROmorphone Take 1 Tablet (2 120 Tablet 0 04/17/20 Discontinued (Dilaudid) 2 mg mg) by mouth ( Reorder tabletIndications: every 6 hours if (E-cancel not Neuropathic pain needed for Pain. sent)) For chronic leg pain Active Problems Problem Noted Date Type 2 diabetes mellitus with diabetic polyneuropathy, with long-term 06/12/2021 current use of insulin Nuclear senile cataract of both eyes 02/07/2021 Vitamin B12 deficiency 12/05/2020 Essential hypertension 07/11/2018 Type 2 diabetes mellitus with diabetic nephropathy, wi th long-term current 01/03/2018 use of insulin Other hyperlipidemia 10/03/2017 Status post below knee amputation of right lower extre mity 10/03/2017 Hyperopia of both eyes with astigmatism and presbyopia 11/30/2016 Pain medication agreement 05/06/2014 ED (erectile dysfunction) 02/25/2014 Retinal ischemia 06/06/2012 S/P below knee amputation 04/22/2012 Overview: Right sided. Peripheral vascular disease, unspecified 04/22/2012 Neuropathic pain 04/15/2012 Overview: As of 10/02/2017 he reports the right soham mp pain hurts worse at night. When he feels well he takes Dilaudid 2 m g twice daily to help with the pain. When he has had a bad day he takes Dilau did 2 mg 3-4 times per day. He has a bad day 2-3 times per week. His next Dilaudid is due on 07/18/2020. Anemia, unspecified 04/15/2012 Resolved Problems Problem Noted Date Resolved Date Routine adult health maintenance 05/19/2013 013 Overview: Colonoscopy 05/2013 normal repeat in 10 y ears Serratia wound infection 04/15/2012 08/05/2012 Diabetic foot ulcer, right 04/15/2012 05/05/2012 Overview: 04/07/2012: S/p I&D and debridement of ri ght lateral foot with ray amputation fo right fifth digit including entire metatarsal and debridemetn of adjacent tarsal bones Leukocytosis 04/15/2012 06/06/2012 Thrombocytosis 04/15/2012 06/06/2012 Hyponatremia 04/15/2012 08/05/2012 Encounters Date Type Specialty Care Team Description 05/29/2022 Telephone Hai Engle Resul ts MD 05/28/2022 Office Visit Hai Engle Diabe tes MD 05/28/2022 Travel 05/17/2022 Refill Lopez Neves Refill Request (HYDROmorphone (Dilaudid) 2 mg tablet) 04/16/2022 Refill Lopez Neves Refill Request (HYDROmorphone (Dilaudid) 2 mg tablet) 03/20/2022 Patient Outreach LowellPatrice barraza [facility] (Care Guide Community Resource Navigation/) 03/19/2022 Office Visit Niharika [place] Wound [facility] (right below [place], [place] knee amputation ) 03/19/2022 Travel 03/19/2022 Nurse Triage Lopez Neves, Derm Pr adin DENNIS 03/16/2022 Telephone Lopez Neves, Medicat ion Management (meds) 03/16/2022 Refill Lopez Neves, Refill Request (HYDROmorphone (Dilaudid) 2 mg tablet) from Last 3 Months Immunizations Name Administration Dates Next Due COVID-19 vaccine (Moderna 01/05/2021, 12/08/2020 100mcg/0.5mL) PF, MDV COVID-19 vaccine (Pfizer-BioNTech 07/19/2021 30mcg/0.3mL) PF, MDV Hepatitis A (Adult) 11/25/2018 Hepatitis B (Adult) 08/25/2015 Influenza, IIV3 (Age >=3 years) 07/02/2013, 04/06/2012 Influenza, IIV4 06/12/2021, 06/06/2020, 07/06/2019, 06/23/2018, 06/05/2017, 06/18/2016, 08/25/2015 Influenza, IIV4 (=>6mos) MDV 06/24/2018, 07/08/2014 MMR 11/25/2018 Pneumococcal Poly,23-Valent 12/29/2013, 04/16/2012 (Pneumovax) TD, UNSPECIFIED 11/25/2018 Tdap 04/03/2012 Zoster (Shingrix-RZV, recombinant) 11/25/2018 Family History Medical History Relation Name Comments Diabetes Father Relation Name Status Comments Father Social History Tobacco Use Types Packs/Day Years Used Date Former Smoker Cigarettes Quit: 06/04/19 98 Smokeless Tobacco: Former User Q uit: 06/04/1999 Tobacco Cessation: Counseling Given: Yes Comments: smoked when he was young Alcohol Use Standard Drinks/Week Comments No 0 (1 standard drink = 0.6 oz pure alcoho l) hx of alcohol abuse Alcohol Habits Answer Date Recorded How often do you have a drink containing alcohol? Not asked How many drinks containing alcohol do you have on a Not aske d typical day when you are drinking? How often do you have six or more drinks on one Not asked occasion? Comment: hx of alcohol abuse 04/15/2012 Sex Assigned at Date Recorded Not on file COVID-19 Exposure Response Date Recorded In the last 10 days, have you been in contact with No / Unsu re 05/28/2022 10:38 AM CDT someone who was confirmed or suspected to have Coronavirus/COVID-19? Obstetrics History Last Filed Vital Signs Vital Sign Reading Time Taken Comments Blood Pressure 119/72 05/28/2022 11:05 AM CDT Pulse 71 05/28/2022 11:05 AM CDT Temperature 37.1 ??C (98.7 ??F) 03/19/2022 12:06 PM CDT Respiratory Rate 20 03/19/2022 12:06 PM CDT Oxygen Saturation 100% 05/28/2022 11:05 AM CDT Inhaled Oxygen Concentration - - Weight 79.6 kg (175 lb 6.4 oz) 05/28/2022 11:05 AM CDT Height 167.6 cm (5' 6) 11/21/2021 9:43 AM CDT Body Mass Index 28.31 11/21/2021 9:43 AM CDT Plan of Treatment Upcoming Encounters Date Type Specialty Care Team Description 08/23/2022 [place] [address] [address] [place], [place] [address] (Wo rk) 08/28/2022 Office Visit Hai Engle MD [address] [facility] [address] [place], [place] [address] (Wo rk) Health Maintenance Due Date Last Done Comments AAA screening age 55-77 2012 Pneumococcal series for age 65+ (2 12/29/2014 12/29/2013, 0 04/16/2012 - PCV) Zoster (shingles) series for age 0501/20/2019 11/25/2018 50+ (2 of 2) Influenza for age 65+ 2022 06/12/2021, 06/06/2020, 07/06/2019, Additional history exists Depression screening for age 12+ 08/22/2022 08/22/2021, 10/2019, 06/06/2020, Additional history exists BMI (ht and wt on same day) for 11/21/2022 11/21/2021, 08/09, age 18+ 07/11/2021, Additional history exists Colonoscopy through age 75 05/19/2023 05/19/2013, 3 Lipids for age 45-75 05/28/2027 05/28/2022, 11/21/2021, 06/12/2021, Additional history exists Tetanus booster 11/25/2028 11/25/2018, 04/03/2012 Tdap Completed 04/03/2012 Hepatitis C screening for age Completed 11/21/2021 18-79 COVID-19 vaccine series Completed 12/27/2021, 07/19/2021, 01/05/2021, Additional history exists Procedures Procedure Name Priority Date/Time Associated Comments Diagnosis URINE ALBUMIN TO Routine 05/28/2022 10:54 AM Type 2 diabetes R esults for this CREATININE RATIO, CDT mellitus with procedure are in RANDOM diabetic the results nephropathy, with section. long-term current use of insulin (HC) ALT (SGPT) Routine 05/28/2022 10:54 AM Type 2 diabetes Resul ts for this CDT mellitus with procedure are in diabetic the results nephropathy, with section. long-term current use of insulin (HC) BASIC METABOLIC Routine 05/28/2022 10:54 AM Type 2 diabetes Re sults for this PANEL CDT mellitus with procedure are in diabetic the results nephropathy, with section. long-term current use of insulin (HC) LIPID PANEL W REFLEX Routine 05/28/2022 10:54 AM Type 2 diabet es Results for this MEASURED LDL CDT mellitus with procedure are in diabetic the results nephropathy, with section. long-term current use of insulin (HC) HEMOGLOBIN A1C Routine 05/28/2022 10:54 AM Type 2 diabetes Res ults for this CDT mellitus with procedure are in diabetic the results nephropathy, with section. long-term current use of insulin (HC) from Last 3 Months Results LIPID PANEL W REFLEX MEASURED LDL (05/28/2022 10:54 AM CDT) [facility] Method Time Signature CHOLESTEROL,TOTAL 111 100 - 199 05/28/2022 [facility] mg/dL 9:29 PM CDT LABORATORY-[facility] TRAL LABORATORY TRIGLYCERIDES 75 <150 05/28/2022 [facility] mg/dL 9:29 PM CDT [facility] HDL CHOLESTEROL 41 >40 mg/dL 05/28/2022 [facility] 9:29 PM CDT [facility] NON-HDL 70 <145 05/28/2022 [facility] CHOLESTEROL mg/dl 9:29 PM CDT [facility] CHOL/HDL RATIO 2.71 <4.50 05/28/2022 [facility] 9:29 PM CDT [facility] LDL CHOLESTEROL 55 <=130 05/28/2022 [facility] mg/dL 9:29 PM CDT [facility] TR[facility] VLDL CHOLESTEROL 15 <=30 05/28/2022 [facility] mg/dL 9:29 PM CDT [facility] TRAL [facility] PROVIDER ORDERED RANDOM 05/28/2022 [facility] STATUS 9:29 PM CDT LAB[facility] Specimen Anatomical Collection Method / Collection Time Recei bowen Time (Source) Location / Volume Laterality Blood BLOOD SPECIMEN / Venipuncture / 05/28/2022 10:54 05/28 Unknown Unknown AM CDT 11:34 AM CDT Hai Engle MD CHEMISTRY Performing Organization Address City/State/ZIP Code Phon e Number [employer] [address] [place] [address] LABORATORY-CENTRAL 2000 LABORATORY URINE ALBUMIN TO CREATININE RATIO, RANDOM (05/28/2022 10:54 AM CDT) P athologist Signature ALB RAND URINE <5.0 mg/L 05/29/2022 [facility] 4[facility] AM CDT LAB[facility]AT[facility]-CENT RAL LABORATORY CREATININE,URIN 0.32 g/L 05/29/2022 [facility] 4:55 AM CDT LAB[facility]AT[facility]-CENT RAL [facility]OR[facility] ALBUMIN TO 05/29/2022 [facility] CREATININE 4:55 AM CDT LABORATORY-CENT RATIO,RAND UR RAL LABORATORY Comment: Urine Albumin below measurement range, unable to calculate Specimen Anatomical Collection Method Collection Time Receive d Time (Source) Location / / Volume Laterality Urine URINE SPECIMEN / Non-Blood / 05/28/2022 10:54 022 Unknown Unknown AM CDT 10:54 AM CDT Narrative [facility] LABORATORY-CENTRAL LABORAT ORY - 05/29/2022 4:55 AM CDT If Albumin to Creatinine Ratio is elevated, consider the following: ? Elevations seen with incipient nephr opathy associated ?? with diabetes mellitus or hypertensi on. Stress, exercise, ?? hematuria, and urinary tract infecti on may also produce ?? elevated results. If clinically lyubov cated, confirm with ?? 24 Hour Albumin to Creatinine Ratio. Hai Engle MD URINE Performing Organization Address City/State/ZIP Code Phon e Number [employer] [address] [facility] [place] [address] LABORATORY-CENTRAL 2000 LABORATORY ALT (SGPT) (05/28/2022 10:54 AM CDT) athologist Signature ALT (SGPT) 16 8 - 45 IU/L 05/28/2022 [facility] 9:29 PM CDT LABORATORY-CENT [facility] LABORATORY Specimen Anatomical Collection Method / Collection Time Recei bowen Time (Source) Location / Volume Laterality Blood BLOOD SPECIMEN / Venipuncture / 05/28/2022 10:54 05/28 Unknown Unknown AM CDT 11:34 AM CDT Hai Engle MD CHEMISTRY Performing Organization Address City/State/ZIP [facility] Phon e Number [facility] [employer] [address] [facility] [place] [address] LABORATORY-CENTRAL 2000 LABORATORY HEMOGLOBIN A1C MONITORING (POCT) (05/28/2022 10:54 AM CDT) athologist Signature HEMOGLOBIN A1C 5.8 <=6.4 % 05/28/2022 [facility] MONITORING 11:03 AM CDT [facility] Specimen Anatomical Collection Method / Collection Time Recei bowen Time (Source) Location / Volume Laterality Blood BLOOD SPECIMEN / Venipuncture / 05/28/2022 10:54 05/28 Unknown Unknown AM CDT 10:54 AM CDT [facility] - 2021 11:03 AM CDT ? (<=6.9%) ? Indicates good control ? (7.0% to 7.9%) ? Indicates fa ir control ? (>=8.0%) ? Indicates poor control ?? NOTE: ??These thresholds are guideli winifred and ?individual targets may va ry. Falsely low levels may be seen with: Recent Transfusion, Recent Significant B lood Loss, Hemolytic Diseases, or Falsely elevated levels may be seen with : Untreated Anemias, Splenectomy ? Hai Engle MD CHEMISTRY Performing Organization Address City/State/ZIP Code Phon e Number [facility] [address] [place] [address] (ABNORMAL) BASIC METABOLIC PANEL (05/28/2022 10:54 AM CDT) [facility] Method Time Signature SODIUM 136 135 - 145 05/28/2022 [facility] mmol/L 9:27 PM CDT LABORATORY-[facility] TRAL LABORATORY POTASSIUM 4.6 3.5 - 5.0 05/28/2022 [facility] mmol/L 9:27 PM CDT LAB[facility]AT[facility] TRAL LABORATORY CHLORIDE 104 98 - 110 05/28/2022 [facility] mmol/L 9:27 PM CDT LABORAT[facility] TRAL LABORATORY CO2,TOTAL 21 21 - 31 05/28/2022 [facility] mmol/L 9:27 PM CDT LAB[facility]AT[facility] TRAL LABORATORY ANION GAP 11 5 - 18 05/28/2022 [facility] 9:27 PM CDT LAB[facility]ATORY[facility] TR[facility] LABORATORY GLUCOSE 140 (H) 65 - 100 05/28/2022 [facility] mg/dL 9:27 PM CDT LAB[facility] TR[facility] LABORAT[facility] CALCIUM 8.9 8.5 - 10.5 05/28/2022 [facility] mg/dL 9:27 PM CDT LAB[facility] TR[facility] LABORAT[facility] BUN 15 8 - 25 05/28/2022 [facility] mg/dL 9:27 PM CDT LAB[facility]AT[facility] TRAL LABORATORY CREATININE 0.69 (L) 0.72 - 05/28/2022 [facility] 1.25 mg/dL 9:27 PM CDT LAB[facility]AT[facility] TRAL LABORATORY BUN/CREAT RATIO 22 (H) 10 - 20 05/28/2022 [facility] 9:27 PM CDT LAB[facility]AT[facility] TR[facility] LABORATORY eGFR >90 >90 05/28/2022 [facility] mL/min/1.7 9:27 PM CDT LABORATORY-EMILY 3m2 TRAL LABORATORY Comment: As of 2021, eGFR is calcu lated by the CKD-EPI creatinine equation without race adjustment. eGFR can be inf luenced by muscle mass, exercise, and diet. The reported eGFR is an estimation only and is only applicable if the renal function is stable. Specimen Anatomical Collection Method / Collection Time Recei bowen Time (Source) Location / Volume Laterality Blood BLOOD SPECIMEN / Venipuncture / 05/28/2022 10:54 05/28 Unknown Unknown AM CDT 11:34 AM CDT Hai Engle MD CHEMISTRY Performing Organization Address City/State/ZIP Code Phon e Number [employer] [address] [place] [address] LABORATORY-CENTRAL 2000 LABORATORY from Last 3 Months Insurance Payer Benefit Plan / Subscriber ID Effective Dates Phone Addre ss Type Group WC WORKERS COMP WC CARDOZO [id number] 2020-Prese [address] [place] [address] [place] [id number] 2019-Presen [address] [address] t [employer] [address] [facility] [employer] [employer] [id number] 2021- [facility] [address] ATTN: [place] [address] Advance Directives Latest Code Status on File Code Status Date Activated Date Inactivated Comments Full Code 04/22/2012 2:22 PM 04/30/2012 3:32 PM Full Code 04/15/2012 9:20 PM 04/22/2012 2:22 PM Care Teams Product Mgmt Dev Manager Relationship Specialty Start Date End Date Hai Engle MD PCP - General Family Practice 05/18/[address] [place] [address]
--- OUTSIDE RECORDS SUMMARY | 2022-06-15 15:55 | XMS_ITS ---
:1955 Author Care Team Providers Name Role Phone Hunter Villanueva Primary Care Provider Unavailable Allergies None recorded. Medications Name Status Start Date Stop Date ? ? cetirizine 10 mg tablet Active ? Not avai lable TAKE 1 TABLET (10 MG) BY MOUTH ONCE DAILY. gabapentin 400 mg capsule Active ? Not av ailable TAKE TWO CAPSULES BY MOUTH THREE TIMES A DAY hydromorphone 2 mg tablet Active ? Not av ailable TAKE 1 TABLET (2 MG) BY MOUTH EVERY 6 H OURS IF NEEDED FOR PAIN. FOR CHRONIC LEG PAIN lisinopril 5 mg tablet Active ? Not avail able TAKE ONE TABLET BY MOUTH EVERY DAY metformin 1,000 mg tablet Active ? Not av ailable TAKE ONE TABLET BY MOUTH TWICE A DAY WITH MEALS Novolin N NPH U-100 Insulin isophane 100 unit/mL subcutaneou s susp Active 01/06/2020 Not available 30 units at breakfast, 10 units at bedtime simvastatin 20 mg tablet Active ? Not vincent ilable TAKE ONE TABLET BY MOUTH AT BEDTIME tab-a-candie tabs Active ? Not available TAKE 1 TABLET BY MOUTH ONCE DAILY. Problems Notes: Problem: Type 2 diabetes mellit Status: Chronic Procedures None recorded. Results Lab Results None recorded. Past Encounters 06/06/2022 Administration of SARS-CoV-2 mRNA Vaccin e MARVIN Silver: [address] [place] [address], Ph. 12/27/2021 Administration of Second Dose of SARS-Co V-2 mRNA Vaccine; Administration of SARS-CoV-2 mRNA Vaccine MARVIN Silver: [address] [place] [id number], Ph. 07/19/2021 Administration of SARS-CoV-2 mRNA Vaccin e MARVIN Silver: [address] [place] [address], Ph. Social History None recorded. Vaccine List Vaccine Type COVID-19, mRNA, LNP-S, bivalent booster, PF, 30 mcg/0.3 mL dose ([employer] 06/07/2022?0.3 COVID-19, mRNA, LNP-S, PF, 30 mcg/0.3 mL dose ([employer] 07/19/2021?0.3 mL COVID-19, mRNA, LNP-S, PF, 30 mcg/0.3 mL dose, soila-sucrose ([employer] 12/27/2021?0.3 01/10/2022?0.3 Plan of Care Patient Instructions May take Ibuprofen or Tylenolprn. Use i ce to arm prn. Reminders Provider Appointments None recorded. ? ? Lab None recorded. ? ? Referral None recorded. ? ? Procedures None recorded. ? ? Surgeries None recorded. ? ? Imaging None recorded. ? ? Vitals None recorded.
--- OUTSIDE RECORDS SUMMARY | 2022-06-15 15:55 | XMS_ITS | Encounter Summary ---
:1955 Author Reason for Visit Booster, Pfizer Bivalent Assessment and Plan 1. Administration of SARS-CoV-2 mRNA va ccine ? Pfizer COVID-19 Bivalent Boost(12y up )(PF) 30 mcg/0.3 mL IM susp (EUA) Discussion Note: None recorded.Patient educational handouts: No information available. Plan of Care Reminders Provider Appointments None recorded. ? ? Lab None recorded. ? ? Referral None recorded. ? ? Procedures None recorded. ? ? Surgeries None recorded. ? ? Imaging None recorded. ? ? Medications Name Start Date ? ? cetirizine 10 mg tablet ? TAKE 1 TABLET (10 MG) BY MOUTH ONCE DAILY. gabapentin 400 mg capsule ? TAKE TWO CAPSULES BY MOUTH THREE TIMES A DAY hydromorphone 2 mg tablet ? TAKE 1 TABLET (2 MG) BY MOUTH EVERY 6 H OURS IF NEEDED FOR PAIN. FOR CHRONIC LEG PAIN lisinopril 5 mg tablet ? TAKE ONE TABLET BY MOUTH EVERY DAY metformin 1,000 mg tablet ? TAKE ONE TABLET BY MOUTH TWICE A DAY WITH MEALS Novolin N NPH U-100 Insulin isophane 100 unit/mL subcu taneous susp ? 30 units at breakfast, 10 units at bedtime simvastatin 20 mg tablet ? TAKE ONE TABLET BY MOUTH AT BEDTIME tab-a-candie tabs ? TAKE 1 TABLET BY MOUTH ONCE DAILY. Medications Administered None recorded. Vitals None recorded. Results Lab Results None recorded. Allergies None recorded. Problems Notes: Problem: Type 2 diabetes mellit us Status: Chronic Procedures None recorded. Vaccine List Vaccine Type COVID-19, mRNA, LNP-S, bivalent booster, PF, 30 mcg/0.3 mL dose ([employer]) 06/07/2022?0.3 COVID-19, mRNA, LNP-S, PF, 30 mcg/0.3 mL dose ([employer]) 07/19/2021?0.3 mL COVID-19, mRNA, LNP-S, PF, 30 mcg/0.3 mL dose, soila-sucrose ([employer]) 12/27/2021?0.3 01/10/2022?0.3 Social History None recorded. Functional Status Unknown. Past Encounters 06/06/2022 Administration of SARS-CoV-2 mRNA Lucio Carbajal, ULTRASOUND TECHNICIAN: [address] [place] [address], Ph. History of Present Illness Note: <div>Requesting Covid 19 vaccine, bivalent last booster 09/18/2020</div><div>
</div> Review of Systems None recorded. Physical Exam ? Notes: <div>A&O x 3, No acute distr ess. Well-appearing.</div>
[2022-06-15 16:03] LABS: HCO3 VBG 28 mmol/L (21-28); Lactate* 2.5 mmol/L (0.5-1.9); PCO2 VBG 51 mmHG (40-50); PO2 VBG 23.5 mmHG (25-47); pH VBG 7.346 (7.32-7.43)
[2022-06-15] MEDS: DEXTROSE 50 % SYRINGE IVP (16:16)
[2022-06-15 16:25] LABS: Hemoglobin* 10.9 gm/dL (13.5-17.5); Mean Corpuscular HGB Conc 32 gm/dL (32-36); Mean Corpuscular Hemoglobin 26 pg (26-34); Mean Corpuscular Volume 80 fL (80-100); Red Blood Count 4.25 m/uL (4.30-5.90); White Blood Count* 13.61 K/uL (4.50-11.00)
[2022-06-15 16:26] LABS: Basophils Absolute Auto 0.03 K/uL (0.00-0.30); Basophils Percent Auto 0.2 % (0.0-3.0); Eosinophils Percent Auto 0.7 % (0.0-7.0); Immature Granulocytes Abs Auto 0.03 K/uL (0.00-0.30); Immature Granulocytes Pct Auto 0.2 %; Lymphocytes Absolute Auto 1.55 K/uL (0.90-2.90); Lymphocytes Percent Auto 11.4 % (20-44); Monocytes Absolute Auto 0.83 K/UL (0.00-0.90); Monocytes Percent Auto 6.1 % (0.0-11.0); Neutrophils Absolute Auto 11.07 K/uL (1.7-7.0); Neutrophils Percent Auto 81.4 % (42.0-72.0); Platelet Count* 377 K/uL (140-440); RDW Coefficient of Variation % 14.6 % (11.5-15.5); Slide Review Reflex No
[2022-06-15 16:36] LABS: Albumin* 4.5 g/dL (3.3-5.0)
[2022-06-15 16:37] LABS: Chloride* 97 mmol/L (96-114); Potassium* 4.5 mmol/L (3.6-5.1); Sodium* 133 mmol/L (135-149)
[2022-06-15 16:38] LABS: Bilirubin Direct* 0.1 mg/dL (0.0-0.5); Bilirubin Total* 0.2 mg/dL (0.1-1.5)
[2022-06-15 16:39] LABS: Alanine Aminotransferase* 27 U/L (4-50); Alkaline Phosphatase* 110 U/L (40-150); Aspartate Amino Transferase* 40 U/L (12-35); Creatinine* 0.5 mg/dL (0.5-1.5); Est. Creatinine Clearance* 61.67; Estimated Glomerular Filt Rate 113 ml/min; Total Protein* 7.6 g/dL (6.0-8.3)
[2022-06-15 16:40] LABS: Blood Urea Nitrogen* 16 mg/dL (7-30); Carbon Dioxide* 25 mmol/L (20-32); Glucose* 94 mg/dL (60-115)
[2022-06-15 16:41] LABS: Calcium* 9.1 mg/dL (8.4-10.6)
[2022-06-15 16:46] LABS: C Reactive Protein* < 0.5 mg/dL (0.5-1.0); Ethanol* < 0.01 % (0.01-0.03)
[2022-06-15 16:51] LABS: Troponin I* < 0.01 ng/mL (0.01-0.04)
[2022-06-15] MEDS: 0.9 % SODIUM CHLORIDE 500 ML 500 ML IV (17:05)
--- NOTE | 2022-06-15 17:17 | ED_ITS ---
HPI - General Adult General Chief complaint: Diabetic Related Problem Stated complaint: Hypoglycemia Time Seen by Provider: 06/15/22 15:15 Source: patient and family Mode of arrival: EMS Limitations: no limitations History of Present Illness HPI narrative: 67-year-old male coming in today after he was found unconscious by his granddaughter. Patient has history of diabetes and has episodes of hypoglycemia. Granddaughter states that she talked to her grandpa this morning he was doing fine. This afternoon she went back to his place and he was slurring his speech. She was able to get inside his house through the window because he was not opening the door. By the time she got inside he was Laying on the ground. She states that he was unresponsive, however if she gave him a shake he would moan. She called EMS. When EMS arrived his blood glucose was 47. They gave him an amp of D50 and it came up to over 200. By the time he arrived in the ER his blood glucose was down to 100. Patient states this has happened to him before. He takes insulin in the evening and in the morning. He cannot tell me what kind of insulin he takes. He says he takes 35 units in the morning, however his granddaughter states that he takes whatever unit amount he feels like. Hypoglycemia has occurred in the past for this patient. In fact, he was here in March with a similar episode. At that time he was instructed to decrease his insulin, this was unfortunately not done. Related Data Home Medications Medication Instructions Recorded Confirmed TAB-A-JENELLE 06/15/22 gabapentin 400 mg capsule mg 06/15/22 lisinopril 5 mg tablet mg 06/15/22 metformin 1,000 mg tablet mg 06/15/22 simvastatin 20 mg tablet mg 06/15/22 Allergies Allergy/AdvReac Type Severity Reaction Status Date / Time ibuprofen AdvReac Unknown Verified 06/15/22 16:06 Review of Systems Status of ROS: Reports: 10 or more systems reviewed and unremarkable except as noted in History and below [facility] Medical History DM (diabetes mellitus), type 2 Social History Smoking Status: Never smoker Do you use any of these nicotine containing products: None How often do you have a drink containing alcohol: never AUDIT-C Alcohol total score: 0 Non-prescribed substance use: denies use Exam Narrative: Exam Narrative: Well-nourished well-developed patient in no acute distress. Alert and oriented x3. Answers questions appropriately. Mood and affect are appropriate. Thoughts are goal oriented and rational. No tangential or magical thinking note d. Patient speaks in full sentences without needing to catch their breath. GCS is 15. HEENT: Normocephalic atraumatic. Pupils are equally round reactive to light. Extraocular muscles are intact. Conjunctivae are moist without any icterus noted. Moist mucous membranes. Posterior pharynx is normal. Neck is soft without any lymphadenopathy or thyromegaly. No masses are appreciated. Cardiovascular: Heart is regular rate and rhythm S1 and S2 are present without any murmurs. Lungs: Clear to auscultation bilaterally no wheezes rhonchi or rales are appreciated. Patient takes deep breaths without any discomfort. Abdomen: Soft and nontender nondistended with normal bowel sounds. No guarding or rebound. No masses or organomegaly appreciated. Extremities: Bilateral lower extremities are without edema. 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 Skin: Well perfused without any obvious rashes. Const: Vital Signs, click to edit/add: Vital Signs - 24 hr 06/15/22 15:15 06/15/22 15:42 06/15/22 19:00 Temperature 97.5 F L Pulse Rate [Right Pulse Oximeter] 75 68 Respiratory Rate 18 12 Blood Pressure [Ri ght Upper Arm] 151/76 H 125/76 Pulse Oximetry 100 100 100 Oxygen Delivery Me thod Room Air 06/15/22 18:00 06/15/22 17:00 06/15/22 16:00 Temperature Pulse Rate [Right Pulse Oximeter] 69 66 73 Respiratory Rate 12 14 12 Blood Pressure [Ri ght Upper Arm] 111/65 107/62 125/75 Pulse Oximetry 97 98 97 Oxygen Delivery Me thod Course Course Hospital Course: EKG done upon arrival showed normal sinus rhythm with a pulse of 70. Lab shows slightly elevated white cell count of 13.6, hemoglobin is low at 10.9. Shortly after arrival his blood sugar was rechecked and it was already down to 70. So patient received another amp of D50. Blood sugar came up to 210, 20 minutes later fell to 160. By the time 60 minutes has passed, he was already down to 96. Therefore D10 was started at 250 mL over half an hour. Initial blood glucose was 180, 1/2 hour after D10 was done he was down to 159. Patient ate. Repeat glucose at 20 minutes was stable at 157. Vital Signs Vital signs: Initial Vital Signs Temperature 97.5 F L 06/15/22 15:15 Temperature Source Temporal Artery Scan 06/15/22 15:15 Pulse Rate 75 06/15/22 15:15 Respiratory Rate 18 06/15/22 15:15 Blood Pressure 151/76 H 06/15/22 15:15 Blood Pressure Mean 101 06/15/22 15:15 Blood Pressure Position Supine 06/15/22 15:15 Pulse Oximetry 100 06/15/22 15:15 Oxygen Delivery Method 06/15/22 15:15 Vital Signs Temperature 97.5 F L 06/15/22 15:15 Pulse Rate 75 06/15/22 15:15 Respiratory Rate 18 06/15/22 15:15 Blood Pressure 151/76 H 06/15/22 15:15 Pulse Oximetry 100 06/15/22 15:15 Oxygen Delivery Method 06/15/22 15:15 Temperature 97.5 F L 06/15/22 15:15 Pulse Rate 68 06/15/22 19:00 Respiratory Rate 12 06/15/22 19:00 Blood Pressure 125/76 06/15/22 19:00 Pulse Oximetry 100 06/15/22 19:00 Oxygen Delivery Method 06/15/22 15:15 Medical Decision Making MDM Narrative Medical decision making narrative: Hyperglycemia. Is concerned the patient took the wrong amount of insulin today. Like for him to decrease his daily insulin at least until he speaks to his primary care provider. Recommend going down to 30 or 25 units in the morning from 35. Discussed with patient and his daughter, who relieved the granddaughter, checking sugars every 30 minutes for the next couple hours to make sure the remained stable. He does have sugar tablets at home. Patient was agreeable and had no other questions. Medical Records Medical records reviewed: Yes I reviewed the patient's medical records Lab Data Lab results reviewed: Yes I reviewed the patient's lab results Labs: Lab Results 06/15/22 06/15/22 06/15/22 Range/Units 15:55 15:55 15:55 WBC 13.61 H (4.50-11.00) K/uL RBC 4.25 L (4.30-5.90) m/uL Hgb 10.9 L (13.5-17.5) gm/dL Hct 34.0 L (37.0-53.0) % MCV 80 (80-100) fL MCH 26 (26-34) pg MCHC 32 (32-36) gm/dL RDW Coeff of Kiesha 14.6 (11.5-15.5) % Plt Count 377 (140-440) K/uL Neut % (Auto) 81.4 H (42.0-72.0) % Lymph % (Auto) 11.4 L (20-44) % [place] % (Auto) 6.1 (0.0-11.0) % Eos % (Auto) 0.7 (0.0-7.0) % Baso % (Auto) 0.2 (0.0-3.0) % Neut # (Auto) 11.07 H (1.7-7.0) K/uL Lymph # (Auto) 1.55 (0.90-2.90) K/uL [place] # (Auto) 0.83 (0.00-0.90) K/UL Eos # (Auto) 0.10 (0.00-0.50) K/uL Baso # (Auto) 0.03 (0.00-0.30) K/uL Abs Immat Gran (auto) 0.03 (0.00-0.30) K/uL Imm/Tot Granulo (auto) 0.2 % VBG pH (7.32-7.43) VBG pCO2 (40-50) mmHG VBG pO2 (25-47) mmHG VBG HCO3 (21-28) mmol/L Sodium 133 L (135-149) mmol/L Potassium 4.5 (3.6-5.1) mmol/L Chloride 97 (96-114) mmol/L Carbon Dioxide 25 (20-32) mmol/L BUN 16 (7-30) mg/dL Creatinine 0.5 (0.5-1.5) mg/dL Estimated Creat Clear 61.67 Estimated GFR 113 ml/min Glucose 94 (60-115) mg/dL Lactate (0.5-1.9) mmol/L Calcium 9.1 (8.4-10.6) mg/dL Total Bilirubin 0.2 (0.1-1.5) mg/dL Direct Bilirubin 0.1 (0.0-0.5) mg/dL AST 40 H (12-35) U/L ALT 27 (4-50) U/L Alkaline Phosphatase 110 (40-150) U/L Troponin I < 0.01 L (0.01-0.04) ng/mL C-Reactive Protein < 0.5 L (0.5-1.0) mg/dL Total Protein 7.6 (6.0-8.3) g/dL Albumin 4.5 (3.3-5.0) g/dL Ethyl Alcohol < 0.01 L (0.01-0.03) % 06/15/22 Range/Units 15:55 WBC (4.50-11.00) K/uL RBC (4.30-5.90) m/uL Hgb (13.5-17.5) gm/dL Hct (37.0-53.0) % MCV (80-100) fL MCH (26-34) pg MCHC (32-36) gm/dL RDW Coeff of Kiesha (11.5-15.5) % Plt Count (140-440) K/uL Neut % (Auto) (42.0-72.0) % Lymph % (Auto) (20-44) % Steuben % (Auto) (0.0-11.0) % Eos % (Auto) (0.0-7.0) % Baso % (Auto) (0.0-3.0) % Neut # (Auto) (1.7-7.0) K/uL Lymph # (Auto) (0.90-2.90) K/uL Steuben # (Auto) (0.00-0.90) K/UL Eos # (Auto) (0.00-0.50) K/uL Baso # (Auto) (0.00-0.30) K/uL Abs Immat Gran (auto) (0.00-0.30) K/uL Imm/Tot Granulo (auto) % VBG pH 7.346 (7.32-7.43) VBG pCO2 51 H (40-50) mmHG VBG pO2 23.5 L (25-47) mmHG VBG HCO3 28 (21-28) mmol/L Sodium (135-149) mmol/L Potassium (3.6-5.1) mmol/L Chloride (96-114) mmol/L Carbon Dioxide (20-32) mmol/L BUN (7-30) mg/dL Creatinine (0.5-1.5) mg/dL Estimated Creat Clear Estimated GFR ml/min Glucose (60-115) mg/dL Lactate 2.5 H (0.5-1.9) mmol/L Calcium (8.4-10.6) mg/dL Total Bilirubin (0.1-1.5) mg/dL Direct Bilirubin (0.0-0.5) mg/dL AST (12-35) U/L ALT (4-50) U/L Alkaline Phosphatase (40-150) U/L Troponin I (0.01-0.04) ng/mL C-Reactive Protein (0.5-1.0) mg/dL Total Protein (6.0-8.3) g/dL Albumin (3.3-5.0) g/dL Ethyl Alcohol (0.01-0.03) % ECG Data Attestation: I personally reviewed and interpreted this ECG as follows: (Normal sinus rhythm pulse 70) Discharge Plan Discharge Clinical Impression: Hypoglycemia Patient Disposition: Home, Self-Care Condition: Improved Additional Instructions: Check blood glucose every 30 minutes for 2 hours. Can stop if they are stable and do not continue to drop. If they reach 100 or less go ahead and take as sugar tablet. Return to the ER if they are not stable and you cannot keep it above 100. Recommend to decrease your morning insulin dose to 30 units or even 25 units of insulin and follow-up with your primary care provider this coming week. Prescriptions: No Action gabapentin 400 mg capsule Label Comments: TAKE TWO CAPSULES BY MOUTH THREE TIMES A DAY simvastatin 20 mg tablet Label Comments: TAKE ONE TABLET BY MOUTH AT BEDTIME metformin 1,000 mg tablet Label Comments: TAKE ONE TABLET BY MOUTH TWICE A DAY WITH MEALS lisinopril 5 mg tablet Label Comments: TAKE ONE TABLET BY MOUTH EVERY DAY TAB-A-JENELLE Follow Up/Referrals: Lopez Neves MD [Primary Care Provider] - Stand Alone [facility]
[2022-06-15] MEDS: 10 % DEXTROSE 500 ML 500 ML IV (18:35)
--- NOTE | 2022-06-15 18:48 | ED.NURSE ---
Accu check: 1835: D10 bolus started, per MD verbal instructions: 250mL in 30min. 1820: 96 mg/dL 1750: 101 mg/dL 1725: 121 mg/dL 1700: 161 mg/dL 1640: 210 mg/dL 1620: Gave D50 50mL/25g. 1600: 71 mg/dL
== END 2022-06-15 20:25 | disposition home or self-care (01) ==
PROVIDERS: Emergency Provider Family Medicine; PCP Family Medicine
DX: E11.649 Type 2 diabetes mellitus with hypoglycemia without coma (principal)
CPT/HCPCS: 36415; 80048; 80076; 81001; 82077; 82803; 82962; 83605; 84484; 85025; 86140; 87086; 93005; 94761; 99284; 99285; J7120

== ENCOUNTER 2022-07-06 18:52 | Outpatient (CLI) | payer MEDICAID, SELFPAY ==
--- OUTSIDE RECORDS SUMMARY | 2022-08-13 03:43 | XMS_ITS | Encounter Summary ---
[...] bivalent booster, PF, 30 mcg/0.3 mL dose ([employer] Nation[employer]NTech) 06/07/2022?0.3 COVID-19, mRNA, LNP-S, PF, 30 mcg/0.3 mL dose ([employer]) 07/19/2021?0.3 mL COVID-19, mRNA, LNP-S, PF, 30 mcg/0.3 mL dose, soila-sucrose ([employer]) 12/27/2021?0.3 01/10/2022?0.3 Social History None recorded. Functional Status Unknown. 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 [phone] History of Present Illness Note: <div>Requesting Covid 19 vaccine, bivalent last booster 09/18/2020</div><div>
</div> Review of Systems None recorded. Physical Exam ? Notes: <div>A&O x 3, No acute distr ess. Well-appearing.</div>
--- OUTSIDE RECORDS SUMMARY | 2022-08-13 03:43 | XMS_ITS ---
[...] Results Lab Results None recorded. Past Encounters Encounter Date Diagnosis Provider 06/06/2022 Administration of SARS-CoV-2 mRNA MARVIN Silver: 14[address] Vaccine [facility] [place] [address], Ph. 12/27/2021 Administration of Second Dose of MARVIN Silver: 1415 SARS-CoV-2 mRNA Vaccine; [facility] [place] Administration of SARS-CoV-2 mRNA [phone], Ph. Vaccine 07/19/2021 Administration of SARS-CoV-2 mRNA MARVIN Silver: 1415 Vaccine [facility] [place] [address], Ph. Social History None recorded. Vaccine List Vaccine Type COVID-19, mRNA, LNP-S, bivalent booster, PF, 30 mcg/0.3 mL dose ([employer]) 06/07/2022?0.3 COVID-19, mRNA, LNP-S, PF, 30 mcg/0.3 mL dose ([employer]) 07/19/2021?0.3 mL COVID-19, mRNA, LNP-S, PF, 30 mcg/0.3 mL dose, soila-sucrose ([employer]) 12/27/2021?0.3 01/10/2022?0.3 Plan of Care Patient Instructions May take Ibuprofen or Tylenolprn. Use i ce to arm prn. Reminders Provider Appointments None recorded. ? ? Lab None recorded. ? ? Referral None recorded. ? ? Procedures None recorded. ? ? Surgeries None recorded. ? ? Imaging None recorded. ? ? Vitals None recorded.
--- OUTSIDE RECORDS SUMMARY | 2022-08-13 03:43 | XMS_ITS | Clinical Summary ---
:1955 Author Organization [employer] [facility] Address [place] [address] Care Team Providers Name Role Phone Hai Engle MD Primary Care Provider [phone] Allergies Active Allergy Reactions Severity Noted [...] once daily. tabletIndications: Vitamin B12 deficiency Insulin [place], As directed. For 100 Each 08/22/20 Active [...] tive folic acid 0.4 mg 22 (Tab-A-Shell) amoxicillin-clavul Take 1 Tablet by 14 Tablet [...] red currently) 07/13/2022 Travel 07/11/2022 Refill Hai Engle Refil l Request (dilaudid) 06/16/2022 Refill Hai Engle Refil l Request (HYDROmorphoalan DENNIS (Dilaudid) 2 mg tablet) 05/29/2022 Telephone Hai Engle Resul ts MD 05/28/2022 Office Visit Hai Engle Diabe tes MD 05/28/2022 Travel 05/17/2022 Refill Lopez Neves Refill Request (HYDROmorphoalan DENNIS (Dilaudid) 2 mg tablet) from Last 3 Months Immunizations Name Administration Dates Next Due COVID-19 vaccine (Moderna 01/05/2021, 12/08/2020 100mcg/0.5mL) PF, MDV COVID-19 vaccine ([employer] 06/07/2022 30mcg/0.3mL) 12YO+ BIVALENT BOOSTER PF, MDV COVID-19 vaccine ([employer] 01/10/2022 30mcg/0.3mL) 12YO+ JACINTA-SUCROSE PF, MDV COVID-19 vaccine ([employer] 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 Obstetrics History Last Filed Vital Signs Vital Sign Reading Time Taken Comments Blood Pressure 136/77 07/20/2022 3:02 PM BRAND ACTIVATION MANAGER Pulse 61 07/20/2022 3:00 PM BRAND ACTIVATION MANAGER Temperature 36.6 ??C (97.8 ??F) 07/13/2022 2:30 PM CDT Respiratory Rate 20 03/19/2022 12:06 PM CDT Oxygen Saturation 100% 07/20/2022 3:00 PM BRAND ACTIVATION MANAGER Inhaled Oxygen Concentration - - Weight 80.9 kg (178 lb 6.4 oz) 07/20/2022 3:00 PM BRAND ACTIVATION MANAGER Height 167.6 cm (5' 6) 11/21/2021 9:43 AM CDT Body Mass Index 28.79 11/21/2021 9:43 AM CDT Plan of Treatment Upcoming Encounters Date Type Specialty Care Team Description 08/23/2022 [place] [address] [address] [place], [place] [address] (Wo rk) 08/28/2022 Office Visit Hai Engle MD [address] [place], [place] [address] (Wo rk) Health Maintenance [...] REFLEX MEASURED LDL (05/28/2022 10:54 AM CDT) [facility] Method Time Signature CHOLESTEROL,TOTAL 111 100 - 199 05/28/2022 [facility] mg/dL 9:29 PM CDT LABORATORY-EMILY TRAL LABORATORY TRIGLYCERIDES 75 <150 05/28/2022 [facility] mg/dL 9:29 PM CDT LABORATORY-EMILY TRAL LABORATORY HDL CHOLESTEROL 41 >40 mg/dL 05/28/2022 [facility] 9:29 PM CDT LABORATORY-EMILY TRAL LABORATORY NON-HDL 70 <145 05/28/2022 [facility] CHOLESTEROL mg/dl 9:29 PM CDT LABORATORY-EMILY TRAL LABORATORY CHOL/HDL RATIO 2.71 <4.50 05/28/2022 [facility] 9:29 PM CDT LABORATORY-EMILY TRAL LABORATORY LDL CHOLESTEROL 55 <=130 05/28/2022 [facility] mg/dL 9:29 PM CDT LABORATORY-EMILY TRAL [...] Hai Engle MD CHEMISTRY Performing Organization Address City/[facility]/ZIP Code Phon e Number [facility] [address] [place] [address] LABORATORY-CENTRAL 2000 LABORATORY URINE ALBUMIN TO CREATININE RATIO, RANDOM (05/28/2022 10:54 AM CDT) athologist Signature ALB RAND URINE <5.0 mg/L 05/29/2022 [facility] [employer] 4:55 AM CDT LABORATORY-CENT RAL LABORATORY CREATININE,URIN 0.32 g/L 05/29/2022 [facility] [employer] E 4:55 AM CDT LABORATORY-CENT RAL LABORATORY ALBUMIN TO 05/29/2022 [facility] [employer] CREATININE 4:55 AM CDT LABORATORY-CENT RATIO,RAND UR RAL LABORATORY Comment: Urine Albumin below measurement range, unable to calculate Specimen Anatomical Collection Method Collection Time Receive d Time (Source) Location / / Volume Laterality Urine URINE SPECIMEN / Non-Blood / 05/28/2022 10:54 022 Unknown Unknown AM CDT 10:54 AM CDT Narrative [facility] LABORATORY-CENTRAL LABORAT ORY - 05/29/2022 4:55 [...] Organization Address City/State/ZIP Code Phon e Number [facility] [address] [place] [address] LABORATORY-CENTRAL 2000 LABORATORY ALT (SGPT) (05/28/2022 10:54 AM CDT) athologist Signature ALT (SGPT) 16 8 - 45 IU/L 05/28/2022 [facility] 9:29 PM CDT LABORATORY-CENT [facility] LABORATORY Specimen Anatomical Collection Method / Collection Time Recei bowen Time (Source) Location / Volume Laterality Blood BLOOD SPECIMEN / Venipuncture / 05/28/2022 10:54 05/28 Unknown Unknown AM CDT 11:34 AM CDT Hai Engle MD CHEMISTRY Performing Organization Address City/State/ZIP Code Phon e Number [facility] [address] [place] [address] LABORATORY-CENTRAL 2000 LABORATORY HEMOGLOBIN A1C MONITORING (POCT) (05/28/2022 10:54 AM CDT) athologist Signature HEMOGLOBIN A1C 5.8 <=6.4 % 05/28/2022 [facility] MONITORING 11:03 AM CDT [place] (POCT) [facility] Specimen Anatomical Collection Method / Collection Time Recei bowen Time (Source) Location / Volume Laterality Blood BLOOD SPECIMEN / Venipuncture / 05/28/2022 10:54 05/28 Unknown Unknown AM CDT 10:54 AM CDT Narrative [facility] - 2021 11:03 AM CDT ? (<=6.9%) [...] Organization Address City/State/ZIP Code Phon e Number [facility] [address] [place] [address] (ABNORMAL) BASIC METABOLIC PANEL (05/28/2022 10:54 AM CDT) Patholo gist Method Time Signature SODIUM 136 135 - 145 05/28/2022 [facility] mmol/L 9:27 PM CDT LABORATORY-EMILY TRAL LABORATORY POTASSIUM 4.6 3.5 - 5.0 05/28/2022 [facility] mmol/L 9:27 PM CDT LABORATORY-EMILY TRAL LABORATORY CHLORIDE 104 98 - 110 05/28/2022 [facility] mmol/L 9:27 PM CDT LABORATORY-EMILY TRAL LABORATORY CO2,TOTAL 21 21 - 31 05/28/2022 [facility] mmol/L 9:27 PM CDT LABORATORY-EMILY TRAL LABORATORY ANION GAP 11 5 - 18 05/28/2022 [facility] 9:27 PM CDT LABORATORY-EMILY TRAL LABORATORY GLUCOSE 140 (H) 65 - 100 05/28/2022 [facility] [employer] mg/dL 9:27 PM CDT LABORATORY-EMILY TRAL LABORATORY CALCIUM 8.9 8.5 - 10.5 05/28/2022 [facility] [employer] mg/dL 9:27 PM CDT LABORATORY-EMILY TRAL LABORATORY BUN 15 8 - 25 05/28/2022 [facility] [employer] mg/dL 9:27 PM CDT LABORATORY-EMILY TRAL LABORATORY CREATININE 0.69 (L) 0.72 - 05/28/2022 [facility] 1.25 mg/dL 9:27 PM CDT LABORATORY-EMILY TRAL LABORATORY BUN/CREAT RATIO 22 (H) 10 - 20 05/28/2022 [facility] [employer] 9:27 PM CDT LABORATORY-EMILY TRAL LABORATORY eGFR >90 >90 05/28/2022 [facility] [employer] mL/min/1.7 9:27 PM CDT LABORATORY-EMILY 3m2 TRAL [...] Organization Address City/State/ZIP Code Phon e Number [facility] [address] [place] [address] LABORATORY-CENTRAL 2000 LABORATORY from Last 3 Months Insurance Payer Benefit Plan / Subscriber ID Effective Dates Phone Addre ss Type Group WC WORKERS COMP WC CAS [id number] 2020-Prese [address] [place] [address] [place]ICAID [place] MEDICA[place] [id number] 2019-Presen [address] [address] [place] [address] [employer] [id number] 2021- [facility] [address] ATTN: SECOND [place] [address] Advance Directives Latest Code Status on File Code Status Date Activated Date Inactivated Comments Full Code 04/22/2012 2:22 PM 04/30/2012 3:32 PM Full Code 04/15/2012 9:20 PM 04/22/2012 2:22 PM Care Teams Group Manager Relationship Specialty Start Date End Date Hai Engle MD PCP - General Family Practice 05/18/22 [address] [place] [address]
== END 2022-07-06 18:53 | disposition home or self-care (01) ==
LOC: AMB 08-13 03:41
PROVIDERS: PCP Family Medicine; Visit Provider Family Medicine
DX: E11.649 Type 2 diabetes mellitus with hypoglycemia without coma (principal)
CPT/HCPCS: A0425; A0429

== ENCOUNTER 2022-07-06 19:25 | Emergency (ER) | payer MEDICAID, SELFPAY ==
[2022-07-06 19:32] VITALS: BP 155/86; PULSE 75; RESP 18; TEMP 36.7; O2SAT 99; BMI 25.8
--- OUTSIDE RECORDS SUMMARY | 2022-07-06 19:56 | XMS_ITS | Clinical Summary ---
:1955 Author Organization [facility] [place] [address] Care Team Providers Name Role Phone Hai Engle MD Primary Care Provider [phone] Allergies Active Allergy Reactions Severity Noted [...] once daily. tabletIndications: Vitamin B12 deficiency Insulin [place], As directed. For 100 Each 08/22/20 Active [...] needed for Pain. For chronic leg pain HYDROmorphone Take 1 Tablet (2 120 Tablet 0 05/18/20 Discontinued (Dilaudid) 2 mg mg) by mouth 22 022 ( Reorder tabletIndications: every 6 hours if [...] 06/16/2022 Refill Hai Engle Refil l Request (HYDROmorphone (Dilaudid) 2 mg tablet) 05/29/2022 Telephone Hai Engle Resul ts MD 05/28/2022 Office Visit Hai Engle Diabe tes MD 05/28/2022 Travel 05/17/2022 Refill Lopez Neves Refill Request (HYDROmorphone (Dilaudid) 2 mg tablet) 04/16/2022 Refill Lopez Neves Refill Request (HYDROmorphone (Dilaudid) 2 mg tablet) from Last 3 Months Immunizations Name Administration Dates Next Due COVID-19 vaccine (Moderna 01/05/2021, 12/08/2020 100mcg/0.5mL) PF, MDV COVID-19 vaccine ([employer] 07/19/2021 30mcg/0.3mL) PF, MDV Hepatitis A (Adult) [...] Assigned at Date Recorded Not on file Obstetrics History Last Filed Vital Signs Vital [...] Care Team Description 08/23/2022 [place] [address] [address] [place] [address] (Wo rk) 08/28/2022 Office Visit Hai Engle MD [address] [place] [address] (Wo rk) Health Maintenance Due [...] REFLEX MEASURED LDL (05/28/2022 10:54 AM CDT) [facility] gist Method Time Signature CHOLESTEROL,TOTAL 111 100 - 199 05/28/2022 [facility] mg/dL 9:29 PM CDT LABORATORY-EMILY TRAL LABORATORY TRIGLYCERIDES 75 <150 05/28/2022 [facility] mg/dL 9:29 PM CDT LAB[facility]ATORY-EM[facility] TRAL LABORATORY HDL CHOLESTEROL 41 >40 mg/dL 05/28/2022 [facility] [employer] [facility] 9:29 PM CDT LABORATORY-EMILY TRAL LABORATORY NON-HDL 70 <145 05/28/2022 [facility] CHOLESTEROL mg/dl 9:29 PM CDT LABORATORY-EMILY TRAL LABORATORY CHOL/HDL RATIO 2.71 <4.50 05/28/2022 [facility] 9:29 PM CDT LABORATORY-EMILY TRAL LABORATORY LDL CHOLESTEROL 55 <=130 05/28/2022 [facility] mg/dL 9:29 PM CDT LABORATORY-[facility] TRAL LABORATORY VLDL CHOLESTEROL 15 <=30 05/28/2022 [facility] mg/dL 9:29 PM CDT LABORATORY-EMILY TRAL [...] Organization Address City/State/ZIP Code Phon e Number [facility] [address] [place] [address] LABORATORY-CENTRAL 2000 LABORATORY URINE ALBUMIN TO CREATININE RATIO, RANDOM (05/28/2022 10:54 AM CDT) athologist Signature ALB RAND URINE <5.0 mg/L 05/29/2022 [facility] 4:55 AM CDT LABORATORY-CENT RAL LABORATORY CREATININE,URIN 0.32 g/L 05/29/2022 [facility] 4:55 AM CDT LABORATORY-CENT RAL LABORATORY ALBUMIN TO 05/29/2022 [facility] CREATININE 4:55 AM CDT LABORATORY-CENT RATIO,RAND UR RAL LABORATORY Comment: Urine Albumin below measurement range, unable to calculate Specimen Anatomical Collection Method Collection Time Receive d Time (Source) Location / / Volume Laterality Urine URINE SPECIMEN / Non-Blood / 05/28/2022 10:54 022 Unknown Unknown AM CDT 10:54 AM CDT Narrative [facility] LABORATORY-CENTRAL LABORAT ORY - 05/29/2022 [...] Hai Engle MD URINE Performing Organization Address City/[facility]/ZIP Code Phon e Number [facility] [employer] [facility] [address] [place] [id number] LABORATORY-CENTRAL 2000 LABORATORY ALT (SGPT) (05/28/2022 10:54 AM CDT) athologist Signature ALT (SGPT) 16 8 - 45 IU/L 05/28/2022 [facility] 9:29 PM CDT LABORATORY-CENT RAL LABORATORY Specimen Anatomical Collection Method / Collection Time Recei bowen Time (Source) Location / Volume Laterality Blood BLOOD SPECIMEN / Venipuncture / 05/28/2022 10:54 05/28 Unknown Unknown AM CDT 11:34 AM CDT Hai Engle MD CHEMISTRY Performing Organization Address City/State/ZIP Code Phon e Number [facility] [address] [place] [address] LABORATORY-CENTRAL 2000 LABORATORY HEMOGLOBIN A1C MONITORING (POCT) (05/28/2022 10:54 AM CDT) athologist Signature HEMOGLOBIN A1C 5.8 <=6.4 % 05/28/2022 [facility] [employer] [facility] MONITORING 11:03 AM CDT [place] (POCT[facility] Specimen Anatomical Collection Method / Collection Time Recei bowen Time (Source) Location / Volume Laterality Blood BLOOD SPECIMEN / Venipuncture / 05/28/2022 10:54 05/28 Unknown Unknown AM CDT 10:54 AM CDT Narrative [facility] - 2021 11:03 AM CDT ? (<=6.9%) [...] Organization Address City/State/ZIP Code Phon e Number [facility] [address] [place] [address] (ABNORMAL) BASIC METABOLIC PANEL (05/28/2022 10:54 AM CDT) [facility] gist Method Time Signature SODIUM 136 135 - 145 05/28/2022 [facility] mmol/L 9:27 PM CDT LABORATORY-EMILY TRAL LABORATORY POTASSIUM 4.6 3.5 - 5.0 05/28/2022 [facility] mmol/L 9:27 PM CDT LABORATORY-EMILY TRAL LABORATORY CHLORIDE 104 98 - 110 05/28/2022 [facility] mmol/L 9:27 PM CDT LABORATORY-MEILY TRAL LABORATORY CO2,TOTAL 21 21 - 31 [...] LABORATORY CREATININE 0.69 (L) 0.72 - 05/28/2022 [facility] 1.25 mg/dL 9:27 PM CDT LABORATORY-EMILY TRAL LABORATORY BUN/CREAT RATIO 22 (H) 10 - 20 05/28/2022 [facility] 9:27 PM CDT LABORATORY-EMILY TRAL LABORATORY eGFR >90 >90 05/28/2022 [facility] mL/min/1.7 9:27 PM CDT LABORATORY-EMILY 3m2 TRAL [...] Organization Address City/State/ZIP Code Phon e Number [facility] [address] [place] [address] LABORATORY-CENTRAL [address] LABORATORY from Last 3 Months Insurance Payer Benefit Plan / Subscriber ID Effective Dates Phone Addre ss Type Group WC WORKERS COMP WC CARDOZO [id number] 2020-Prese [address] [place] [address] MEDICAID [place] MEDICAID [place] [id number] 2019-Presen [address] [address] t [place] [address] [employer] [id number] 2021- [facility] [address] ATTN: [place] [address] Advance Directives Latest Code Status on File Code Status Date Activated Date Inactivated Comments Full Code 04/22/2012 2:22 PM 04/30/2012 3:32 PM Full Code 04/15/2012 9:20 PM 04/22/2012 2:22 PM Care Teams Work And Family Life Consultant Relationship Specialty Start Date End Date Hai Engle MD PCP - General Family Practice 05/18/[address] [place] [address]
--- OUTSIDE RECORDS SUMMARY | 2022-07-06 19:56 | XMS_ITS ---
[...] SARS-CoV-2 mRNA Vaccin e MARVIN Silver: [address] [place] [address], Ph. 12/27/2021 Administration of Second Dose of SARS-Co V-2 mRNA Vaccine; Administration of SARS-CoV-2 mRNA Vaccine MARVIN Silver: [address] [facility] [place] [id number], Ph. 07/19/2021 Administration of SARS-CoV-2 mRNA Vaccin e MARVIN Silver: [address] [place] [address], Ph. Social History None recorded. Vaccine List Vaccine Type COVID-19, mRNA, LNP-S, bivalent booster, PF, 30 mcg/0.3 mL dose ([employer]) 06/07/2022?0.3 COVID-19, mRNA, LNP-S, PF, 30 mcg/0.3 mL dose ([employer]) 07/19/2021?0.3 mL COVID-19, mRNA, LNP-S, PF, 30 mcg/0.3 mL dose, soila-sucrose ([employer]) 12/27/2021?0.3 01/10/2022?0.3 Plan of Care Patient Instructions May take Ibuprofen or Tylenolprn. Use i ce to arm prn. Reminders Provider Appointments None recorded. ? ? Lab None recorded. ? ? Referral None recorded. ? ? Procedures None recorded. ? ? Surgeries None recorded. ? ? Imaging None recorded. ? ? Vitals None recorded.
--- OUTSIDE RECORDS SUMMARY | 2022-07-06 19:56 | XMS_ITS | Encounter Summary ---
[...] bivalent booster, PF, 30 mcg/0.3 mL dose ([employer] Biosc[employer]) 06/07/2022?0.3 COVID-19, mRNA, LNP-S, PF, 30 mcg/0.3 mL dose ([employer]) 07/19/2021?0.3 mL COVID-19, mRNA, LNP-S, PF, 30 mcg/0.3 mL dose, soila-sucrose ([employer]) 12/27/2021?0.3 01/10/2022?0.3 Social History None recorded. Functional Status Unknown. Past Encounters 06/06/2022 Administration of SARS-CoV-2 mRNA Lucio Carbajal, COAL SCREENER: [address] [place] [address], Ph. History of Present Illness Note: <div>Requesting Covid 19 vaccine, bivalent last booster 09/18/2020</div><div>
</div> Review of Systems None recorded. Physical Exam ? Notes: <div>A&O x 3, No acute distr ess. Well-appearing.</div>
--- NOTE | 2022-07-06 19:58 | ED.GENADULT ---
HPI - General Adult General Chief complaint: Diabetic Related Problem Stated complaint: Diabetic complications Time Seen by Provider: 07/06/22 19:37 Source: patient and family Mode of arrival: EMS Limitations: no limitations History of Present Illness HPI narrative: Patient is a 67-year-old male presenting with hypoglycemia. This has happened many times to him the past. The he states that he is taking 35 units of insulin at night and 20-30 in the morning. We had a discussion about this at his last ER visit and he did not change his dosing. He was found laying in bed today by his son. He was awake but very confused in out of it. Blood glucose was 50. EMS was called and they gave him 1 mg of glucagon. He responded very well. He perked up and was no longer confused. Upon arrival to the ED his blood sugar is 90. Tells me that he has not gone to see in [facility] Since his last ER visit for hypoglycemia. Related Data Home Medications Medication Instructions Recorded Confirmed TAB-A-JENELLE 06/15/22 gabapentin 400 mg capsule mg 06/15/22 lisinopril 5 mg tablet mg 06/15/22 metformin 1,000 mg tablet mg 06/15/22 simvastatin 20 mg tablet mg 06/15/22 Allergies Allergy/AdvReac Type Severity Reaction Status Date / Time ibuprofen AdvReac Unknown Verified 06/15/22 16:06 Review of Systems Status of ROS: Reports: 10 or more systems reviewed and unremarkable except as noted in History and below [facility] Medical History DM (diabetes mellitus), type 2 Social History Smoking Status: Never smoker Do you use any of these nicotine containing products: None How often do you have a drink containing alcohol: never AUDIT-C Alcohol total score: 0 Non-prescribed substance use: denies use Exam Narrative: Exam Narrative: Well-nourished well-developed patient in no acute distress. Alert and oriented x3. Answers questions appropriately. Mood and affect are appropriate. Thoughts are goal oriented and rational. No tangential or magical thinking noted. Patient speaks in full sentences without needing to catch his breath. Speech is not slurred or pressured. GCS is 15. HEENT: Normocephalic atraumatic. Pupils are equally round reactive to light. Extraocular muscles are intact. Conjunctivae are moist without any icterus noted. Moist mucous membranes. Posterior pharynx is normal. Neck is soft without any lymphadenopathy or thyromegaly. No masses are appreciated. Cardiovascular: Heart is regular rate and rhythm S1 and S2 are present without any murmurs. Lungs: Clear to auscultation bilaterally no wheezes rhonchi or rales are appreciated. Patient takes deep breaths without any discomfort. Abdomen: Soft and nontender nondistended with normal bowel sounds. No guarding or rebound. No masses or organomegaly appreciated. Extremities: Bilateral lower extremities are without edema. Normal DP and PT pulses. Skin: Well perfused without any obvious rashes. Const: Vital Signs, click to edit/add: Vital Signs - 24 hr 07/06/22 19:32 Temperature 98.0 F Pulse Rate [Right Pulse Oximeter] 75 Respiratory Rate 18 Blood Pressure [Ri ght Upper Arm] 155/86 H Pulse Oximetry 99 Oxygen Delivery Me thod Room Air Course Course Hospital Course: Initial glucose was 90, 30 minutes later was 140, 30 minutes later 134, 30 minutes later it was 150. Patient ate some Jell-O while he was here but he did not want to eat anything else. Patient remained hemodynamically stable neurologically stable. Vital Signs Vital signs: Initial Vital Signs Temperature 98.0 F 07/06/22 19:32 Temperature Source Temporal Artery Scan 07/06/22 19:32 Pulse Rate 75 07/06/22 19:32 Respiratory Rate 18 07/06/22 19:32 Blood Pressure 155/86 H 07/06/22 19:32 Blood Pressure Mean 109 07/06/22 19:32 Blood Pressure Position Supine 07/06/22 19:32 Pulse Oximetry 99 07/06/22 19:32 Oxygen Delivery Method 07/06/22 19:32 Vital Signs Temperature 98.0 F 07/06/22 19:32 Pulse Rate 75 07/06/22 19:32 Respiratory Rate 18 07/06/22 19:32 Blood Pressure 155/86 H 07/06/22 19:32 Pulse Oximetry 99 07/06/22 19:32 Oxygen Delivery Method 07/06/22 19:32 Temperature 98.0 F 07/06/22 19:32 Pulse Rate 75 07/06/22 19:32 Respiratory Rate 18 10/28/22 19:32 Blood Pressure 155/86 H 07/06/22 19:32 Pulse Oximetry 99 07/06/22 19:32 Oxygen Delivery Method 07/06/22 19:32 Medical Decision Making MDM Narrative Medical decision making narrative: 67-year-old male with recurrent episodes of hypoglycemia. Recommend he hold this evening's dose of insulin. Recommend he decrease his morning dose to 20-25 units. We discussed this at his last ER visit. And he needs to follow up with primary care provider to discuss other treatments for diabetes that do not include insulin. This was communicated both to the patient and family members. Medical Records Medical records reviewed: Yes I reviewed the patient's medical records Lab Data Lab results reviewed: Yes I reviewed the patient's lab results Discharge Plan Discharge Clinical Impression: Hypoglycemia Patient Disposition: Home, Self-Care Condition: Improved Additional Instructions: Hold insulin dose for the evening. Decrease morning insulin dose to 20 units daily. Evening dose should also be 20 units daily until you are seen by your doctor. Follow-up with your primary care provider to discuss changes in medication to treat diabetes. Prescriptions: No Action gabapentin 400 mg capsule Label Comments: TAKE TWO CAPSULES BY MOUTH THREE TIMES A DAY simvastatin 20 mg tablet Label Comments: TAKE ONE TABLET BY MOUTH AT BEDTIME metformin 1,000 mg tablet Label Comments: TAKE ONE TABLET BY MOUTH TWICE A DAY WITH MEALS lisinopril 5 mg tablet Label Comments: TAKE ONE TABLET BY MOUTH EVERY DAY TAB-A-JENELLE Follow Up/Referrals: Lopez Neves MD [Primary Care Provider] - Stand Alone Forms: [employer] Info Instructions
--- NOTE | 2022-07-06 21:11 | ED.NURSE ---
1948 - BG 140 2019 - BG 134 2049 - BG 150
== END 2022-07-06 21:07 | disposition home or self-care (01) ==
PROVIDERS: Emergency Provider Family Medicine; PCP Family Medicine
DX: E11.649 Type 2 diabetes mellitus with hypoglycemia without coma (principal)
CPT/HCPCS: 82962; 99283; 99284

== ENCOUNTER 2022-07-27 15:51 | Outpatient (CLI) | payer MEDICAID, SELFPAY ==
--- OUTSIDE RECORDS SUMMARY | 2022-08-22 14:17 | XMS_ITS ---
[...] of SARS-CoV-2 mRNA MARVIN Silver: 1415 Vaccine [facility] [place] [address], Ph. 12/27/2021 Administration of Second Dose of MARVIN Silver: 1415 SARS-CoV-2 mRNA Vaccine; [facility] [place] Administration of SARS-CoV-2 mRNA [phone], Ph. Vaccine 07/19/2021 Administration of SARS-CoV-2 mRNA MARVIN Silver: 1415 Vaccine [facility] [place] [address], Ph. Social History None recorded. Vaccine List Vaccine Type COVID-19, mRNA, LNP-S, bivalent booster, PF, 30 mcg/0.3 mL dose ([employer]) 06/07/2022?0.3 COVID-19, mRNA, LNP-S, PF, 30 mcg/0.3 mL dose ([employer]) 07/19/2021?0.3 mL COVID-19, mRNA, LNP-S, PF, 30 mcg/0.3 mL dose, soila-sucrose ([employer]) 12/27/2021?0.3 01/10/2022?0.3 Plan of Care Patient Instructions May take Ibuprofen or Tylenolprn. Use i ce to arm prn. Reminders Provider Appointments None recorded. ? ? Lab None recorded. ? ? Referral None recorded. ? ? Procedures None recorded. ? ? Surgeries None recorded. ? ? Imaging None recorded. ? ? Vitals None recorded.
--- OUTSIDE RECORDS SUMMARY | 2022-08-22 14:17 | XMS_ITS | Clinical Summary ---
:1955 Author Organization [facility] [place] [address] Care Team Providers Name Role Phone Hai Engle MD Primary Care Provider [phone] Allergies Active Allergy Reactions Severity Noted [...] once daily. tabletIndications: Vitamin B12 deficiency Insulin Crawford, As directed. For 100 Each 08/22/20 Active [...] with long-term current use of insulin (HC) multivitamin with 0 06/15/20 Ac tive folic acid 0.4 mg 22 (Tab-A-Shell) HYDROmorphone Take 1 Tablet (2 120 Tablet 0 08/17/20 Active (Dilaudid) 2 mg mg) by mouth 22 tabletIndications: every 6 hours if Neuropathic pain needed for Pain. For chronic leg pain-fill on or after 07/16/22 HYDROmorphone Take 1 Tablet (2 120 Tablet 0 07/11/20 Discontinued (Dilaudid) 2 mg mg) by mouth 22 022 ( Reorder tabletIndications: every 6 hours if (E-cancel not Neuropathic pain needed for Pain. sent)) For chronic leg pain-fill on or after 07/16/22 Active Problems Problem Noted Date Type 2 [...] Encounters Date Type Specialty Care Team Description 08/17/2022 Refill Hai Engle Refil l Request (HYDROmorphoalan DENNIS (Dilaudid) 2 mg tablet 120 Tablet 0 ) 07/20/2022 Office Visit Tim Rosenberg, Follow Up [...] Hai Engle Diabe tes MD 05/28/2022 Travel from Last 3 Months Immunizations Name Administration Dates Next Due COVID-19 vaccine (Moderna 01/05/2021, 12/08/2020 100mcg/0.5mL) PF, MDV COVID-19 vaccine (CitizenShipper 06/07/2022 30mcg/0.3mL) 12YO+ BIVALENT BOOSTER PF, MDV COVID-19 vaccine ([employer]izen[employer]ipper 01/10/2022 30mcg/0.3mL) 12YO+ JACINTA-SUCROSE PF, MDV COVID-19 vaccine ([employer]ipper 07/19/2021 30mcg/0.3mL) PF, MDV Hepatitis A (Adult) [...] Tobacco Use Types Packs/Day Years Used Date Smoking Tobacco: Former Cigarettes Quit : 06/04/1998 Smokeless Tobacco: Former Qu it: 06/04/1999 Tobacco Cessation: Counseling Given: Yes Comments: smoked when he was young Alcohol Use Standard Drinks/Week Comments No 0 (1 standard drink = 0.6 oz pure alcoho l) hx of alcohol abuse Sex Assigned at Date Recorded Not on file Obstetrics History Last Filed Vital Signs Vital Sign Reading Time Taken Comments Blood Pressure 136/77 07/20/2022 3:02 PM EXPELLER WORKER Pulse 61 07/20/2022 3:00 PM EXPELLER WORKER Temperature 36.6 ??C (97.8 ??F) 07/13/2022 2:30 PM CDT Respiratory Rate 20 03/19/2022 12:06 PM CDT Oxygen Saturation 100% 07/20/2022 3:00 PM EXPELLER WORKER Inhaled Oxygen Concentration - - Weight 80.9 kg (178 lb 6.4 oz) 07/20/2022 3:00 PM [employer]PELLER WORK[employer] Height 167.6 cm (5' 6) 11/21/2021 9:43 AM CDT Body Mass Index 28.79 11/21/2021 9:43 AM CDT Plan of Treatment Upcoming Encounters Date Type Specialty Care Team Description 08/23/2022 [place] [address] [address] [place], [place] [address] (Wo rk) 08/28/2022 Office Visit Hai Engle MD [address] [place] [address] (Wo rk) Health Maintenance Due [...] REFLEX MEASURED LDL (05/28/2022 10:54 AM CDT) [facility] gist Method Time Signature CHOLESTEROL,TOTAL 111 100 - 199 05/28/2022 [facility] mg/dL 9:29 PM CDT LABORATORY-EMILY TRAL LABORATORY TRIGLYCERIDES 75 <150 05/28/2022 [facility] mg/dL 9:29 PM CDT LAB[facility]ATORY-[facility] TRAL LABORATORY HDL CHOLESTEROL 41 >40 mg/dL 05/28/2022 [facility] 9:29 PM CDT LABORATORY-[facility] TRAL LABORATORY NON-HDL 70 <145 05/28/2022 [facility] CHOLESTEROL mg/dl 9:29 PM CDT LABORATORY-EM[facility] TRAL LABORATORY CHOL/HDL RATIO 2.71 <4.50 05/28/2022 [facility] 9:29 PM CDT LABORATORY-[facility] TRAL LABORATORY LDL CHOLESTEROL 55 <=130 05/28/2022 [facility] mg/dL 9:29 PM CDT LABORATORY-[facility] TRAL LABORATORY VLDL CHOLESTEROL 15 <=30 05/28/2022 [facility] mg/dL 9:29 PM CDT LABORATORY-EMILY [...] Organization Address City/State/ZIP Code Phon e Number [facility] [address] [place] [address] LABORATORY-CENTRAL 2000 LABORATORY URINE ALBUMIN TO CREATININE RATIO, RANDOM (05/28/2022 10:54 AM CDT) athologist Signature ALB RAND URINE <5.0 mg/L 05/29/2022 [facility] 4:55 AM CDT LABORATORY-CENT RAL LABORATORY CREATININE,URIN 0.32 g/L 05/29/2022 [facility] E 4:55 AM CDT LABORATORY-CENT RAL LABORATORY ALBUMIN TO 05/29/2022 [facility] CREATININE 4:55 AM CDT LABORATORY-CENT RATIO,RAND UR RAL LABORATORY Comment: Urine Albumin below measurement range, unable to calculate Specimen Anatomical Collection Method Collection Time Receive d Time (Source) Location / / Volume Laterality Urine URINE SPECIMEN / Non-Blood / 05/28/2022 10:54 022 Unknown Unknown AM CDT 10:54 AM CDT Narrative [facility] LABORATORY-CENTRAL LABORAT ORY - 05/29/2022 4:55 [...] Hai Engle MD URINE Performing Organization Address City/[facility]/ZIP Code Phon e Number [facility] [address] [place] [address] LABORATORY-CENTRAL 2000 LABORATORY ALT (SGPT) (05/28/2022 10:54 AM CDT) athologist Signature ALT (SGPT) 16 8 - 45 IU/L 05/28/2022 [facility] 9:29 PM CDT LABORATORY-CENT RAL LABORATORY Specimen Anatomical Collection Method / Collection Time Recei bowen Time (Source) Location / Volume Laterality Blood BLOOD SPECIMEN / Venipuncture / 05/28/2022 10:54 05/28 Unknown Unknown AM CDT 11:34 AM CDT Hai Engle MD CHEMISTRY Performing Organization Address City/State/ZIP Code Phon e Number [facility] [address] [place] [address] LABORATORY-CENTRAL 2000 LABORATORY HEMOGLOBIN A1C MONITORING (POCT) (05/28/2022 10:54 AM CDT) P athologist Signature HEMOGLOBIN A1C 5.8 <=6.4 % 05/28/2022 [facility] MONITORING 11:03 AM CDT [facility] Specimen Anatomical Collection Method / Collection Time Recei bowen Time (Source) Location / Volume Laterality Blood BLOOD SPECIMEN / Venipuncture / 05/28/2022 10:54 05/28 Unknown Unknown AM CDT 10:54 AM CDT Narrative [facility] - 2021 11:03 AM CDT ? [...] Organization Address City/State/ZIP Code Phon e Number [facility] [address] [place] [address] (ABNORMAL) BASIC METABOLIC PANEL (05/28/2022 10:54 AM [...] LABORATORY CREATININE 0.69 (L) 0.72 - 05/28/2022 [email or web address] 1.25 mg/dL 9:27 PM CDT LABORATORY-EMILY TRAL LABORATORY BUN/CREAT RATIO 22 (H) 10 - 20 05/28/2022 [email or web address] 9:27 PM CDT LABORATORY-EMILY TRAL LABORATORY eGFR >90 >90 05/28/2022 [email or web address] mL/min/1.7 9:27 PM CDT LABORATORY-EMILY 3m2 TRAL [...] Organization Address City/State/ZIP Code Phon e Number [email or web address] [address] [place] [address] LABORATORY-CENTRAL 2000 LABORATORY from Last 3 Months Insurance Payer Benefit Plan / Subscriber ID Effective Dates Phone Addre ss Type Group WC WORKERS COMP WC CAS [id number] 2020-Prese [address] [place] [address] MEDICAID [place] MEDICA[place] [id number] 2019-Presen [address] [address] [place] [address] [facility] [id number] 2021- [address] [facility] [address] ATTN: [place] [address] Advance Directives Latest Code Status on File Code Status Date Activated Date Inactivated Comments Full Code 04/22/2012 2:22 PM 04/30/2012 3:32 PM Code Status History Code Status Date Activated Date Inactivated Comments Full Code 04/15/2012 9:20 PM 04/22/2012 2:22 PM Care Teams Pr Specialist Relationship Specialty Start Date End Date Hai Engle MD PCP - General Family Practice 05/18/[address] [place] [address]
--- OUTSIDE RECORDS SUMMARY | 2022-08-22 14:17 | XMS_ITS | Encounter Summary ---
[...] bivalent booster, PF, 30 mcg/0.3 mL dose ([employer]) 06/07/2022?0.3 COVID-19, mRNA, LNP-S, PF, 30 mcg/0.3 mL dose ([employer]) 07/19/2021?0.3 mL COVID-19, mRNA, LNP-S, PF, 30 mcg/0.3 mL dose, soila-sucrose ([employer]) 12/27/2021?0.3 01/10/2022?0.3 Social History None recorded. Functional Status Unknown. Past Encounters Encounter Date Diagnosis Provider 06/06/2022 Administration of SARS-CoV-2 mRNA Sade Carbajal, [employer]: [address] [facility] [facility] [place] [address], Ph. History of Present Illness Note: <div>Requesting Covid 19 vaccine, bivalent last booster 09/18/2020</div><div>
</div> Review of Systems None recorded. Physical Exam ? Notes: <div>A&O x 3, No acute distr ess. Well-appearing.</div>
== END 2022-07-27 15:52 | disposition home or self-care (01) ==
LOC: AMB 08-22 14:16
PROVIDERS: PCP Family Medicine; Visit Provider Family Medicine
DX: E11.649 Type 2 diabetes mellitus with hypoglycemia without coma (principal)
CPT/HCPCS: A0998

== ENCOUNTER 2022-08-24 16:53 | Outpatient (CLI) | payer MEDICAID, SELFPAY | END 2022-08-24 16:54 | disposition home or self-care (01) | LOC: AMB 09-04 16:51 | PROVIDERS: PCP Family Medicine; Visit Provider Family Medicine | DX: R41.82 Altered mental status, unspecified (principal) | CPT/HCPCS: A0998 ==

== ENCOUNTER 2022-10-09 14:14 | Outpatient (CLI) | payer MEDICAID, SELFPAY | END 2022-10-09 14:15 | disposition home or self-care (01) | LOC: AMB 10-10 22:36 | PROVIDERS: PCP Family Medicine; Visit Provider Family Medicine | DX: R55 Syncope and collapse (principal); R41.82 Altered mental status, unspecified; R41.0 Disorientation, unspecified | CPT/HCPCS: A0425; A0427 ==

== ENCOUNTER 2022-10-09 14:49 | Emergency (ER) | payer MEDICAID, SELFPAY ==
[2022-10-09] MEDS: DEXTROSE 50 % SYRINGE IVP (14:55)
[2022-10-09] MEDS: 5 % DEXTROSE/0.45% SOD CHLOR 1,000 ML 1000 ML IV (15:10)
--- NOTE | 2022-10-09 15:10 | ED_ITS ---
HPI - General Adult General Chief complaint: Diabetic Related Problem Stated complaint: Diabetic Time Seen by Provider: 10/09/22 15:05 History of Present Illness HPI narrative: This 67-year-old male comes in by ambulance because of decreased responsiveness while he was in his car. He did mumble when they tried to stimulate him. When they attempted to get him out of the car he became combative and had to be restrained. A blood glucose was checked and returned at 34. An IV was placed and he was administered glucose but this infiltrated. He arrives here and is blood glucose remains at around 35. Soon after arrival a new IV was placed and an amp of D50 was administered. Within less than a minute he returned back to normal function. He states that he does take insulin twice a day. Related Data Home Medications Medication Instructions Recorded Confirmed TAB-A-JENELLE 06/15/22 gabapentin 400 mg capsule mg 06/15/22 lisinopril 5 mg tablet mg 06/15/22 metformin 1,000 mg tablet mg 06/15/22 simvastatin 20 mg tablet mg 06/15/22 Allergies Allergy/AdvReac Type Severity Reaction Status Date / Time ibuprofen AdvReac Unknown Verified 06/15/22 16:06 Review of Systems Status of ROS: Reports: 10 or more systems reviewed and unremarkable except as noted in History and below Narrative: Constitutional: No fevers, no weight gain or loss. Eyes: No discharge. No vision changes. HENT: No congestion, no sore throat, no ear pain. Cardiovascular: No chest pain, no palpitations. Respiratory: No shortness of breath, no wheezes, no cough. Gastrointestinal: No abdominal pain, no vomiting, no diarrhea. Genitourinary: No dysuria, no hematuria. Musculoskeletal: Normal range of motion. Skin: No rashes, no pruritis. Neurological: No dizziness, weakness, sensory change, speech change. Endo/Heme/Allergies: No bruising or bleeding. No polydipsia. Pysch: no suicidality, no anxiety, no insomnia. All other systems reviewed and are negative. [facility] Medical History DM (diabetes mellitus), type 2 Social History Smoking Status: Never smoker Do you use any of these nicotine containing products: None How often do you have a drink containing alcohol: never AUDIT-C Alcohol total score: 0 Non-prescribed substance use: denies use Exam Narrative: Exam Narrative: Constitutional: Well-developed, well-nourished, no acute distress. HEENT: Normocephalic, atraumatic. Neck: Normal range of motion. Nontender. Supple. Heart: Regular. No murmurs. Normal rate. Intact distal pulses. Lungs: Clear to auscultation. No chest discomfort. No wheezes, rhonchi, or rales. Abdomen: Normal bowel sounds. Nontender. No rebound tenderness. Genitalia: Deferred. Back: No midline tenderness. Normal range of motion. Extremities: Normal range of motion. No injury. Skin: Intact. No rash. Warm. No erythema or pallor. Neurologic: No altered sensation. No weakness. Alert and oriented. Psychiatric: No suicidality. No anxiety or depression. No insomnia. Nursing notes and vitals signs are reviewed. Const: Vital Signs, click to edit/add: Vital Signs - 24 hr 10/09/22 15:19 Temperature 96.8 F L Pulse Rate [Pulse Oximeter] 70 Respiratory Rate 16 Blood Pressure [Le ft Upper Arm] 139/69 Pulse Oximetry 99 Oxygen Delivery Me thod Room Air Course Vital Signs Vital signs: Initial Vital Signs Temperature 96.8 F L 10/09/22 15:19 Temperature Source Temporal Artery Scan 10/09/22 15:19 Pulse Rate 70 10/09/22 15:19 Respiratory Rate 16 10/09/22 15:19 Blood Pressure 139/69 10/09/22 15:19 Blood Pressure Mean 92 10/09/22 15:19 Blood Pressure Position Supine 10/09/22 15:19 Pulse Oximetry 99 10/09/22 15:19 Oxygen Delivery Method 10/09/22 15:19 Vital Signs Temperature 96.8 F L 10/09/22 15:19 Pulse Rate 70 10/09/22 15:19 Respiratory Rate 16 10/09/22 15:19 Blood Pressure 139/69 10/09/22 15:19 Pulse Oximetry 99 10/09/22 15:19 Oxygen Delivery Method 10/09/22 15:19 Temperature 96.8 F L 10/09/22 15:19 Pulse Rate 70 10/09/22 15:19 Respiratory Rate 16 10/09/22 15:19 Blood Pressure 139/69 10/09/22 15:19 Pulse Oximetry 99 10/09/22 15:19 Oxygen Delivery Method 10/09/22 15:19 Medical Decision Making MDM Narrative Medical decision making narrative: This patient comes in with decreased responsiveness and then some combativeness due to hypoglycemic event. Initial IV introduced by EMS infiltrated so he did not get recovery with glucose that was administered. A new IV was placed here and amp of D50 brought quick recovery of his symptoms. He did receive then 1L of D5 half-normal saline. This brought his blood glucose of over 200. Other lab results returned with reassuring findings. The patient is completely back to normal. He is okay to be discharged home. I advised him to closely watch his blood glucose levels and avoid hypoglycemia. He was advised to follow-up with his primary physician and consider decreasing his insulin dosing a bit and/or be sure to take enough food. Lab Data Labs: Lab Results 10/09/22 10/09/22 Range/Units 15:00 15:00 WBC 12.71 H (4.50-11.00) K/uL RBC 4.17 L (4.30-5.90) m/uL Hgb 10.3 L (13.5-17.5) gm/dL Hct 32.1 L (37.0-53.0) % MCV 77 L (80-100) fL MCH 25 L (26-34) pg MCHC 32 (32-36) gm/dL RDW Coeff of Kiesha 15.1 (11.5-15.5) % Plt Count 391 (140-440) K/uL Neut % (Auto) 75.3 H (42.0-72.0) % Lymph % (Auto) 15.2 L (20-44) % [place] % (Auto) 7.2 (0.0-11.0) % Eos % (Auto) 1.0 (0.0-7.0) % Baso % (Auto) 0.3 (0.0-3.0) % Neut # (Auto) 9.60 H (1.7-7.0) K/uL Lymph # (Auto) 1.90 (0.90-2.90) K/uL [place] # (Auto) 0.90 (0.00-0.90) K/UL Eos # (Auto) 0.10 (0.00-0.50) K/uL Baso # (Auto) 0.00 (0.00-0.30) K/uL Sodium 138 (135-149) mmol/L Potassium 3.4 L (3.6-5.1) mmol/L Chloride 103 (96-114) mmol/L Carbon Dioxide 24 (20-32) mmol/L BUN 15 (7-30) mg/dL Creatinine 0.5 (0.5-1.5) mg/dL Estimated Creat Clear 66.46 Estimated GFR 113 ml/min Glucose 34 L* (60-115) mg/dL Calcium 8.6 (8.4-10.6) mg/dL Discharge Plan Discharge Clinical Impression: Hypoglycemic event in diabetes Patient Disposition: Home, Self-Care Condition: Improved Additional Instructions: Consider decreasing insulin by a couple units. Monitor blood glucose closely. Follow-up with primary physician for ongoing management. Return if worsening. Prescriptions: No Action gabapentin 400 mg capsule Label Comments: TAKE TWO CAPSULES BY MOUTH THREE TIMES A DAY simvastatin 20 mg tablet Label Comments: TAKE ONE TABLET BY MOUTH AT BEDTIME metformin 1,000 mg tablet Label Comments: TAKE ONE TABLET BY MOUTH TWICE A DAY WITH MEALS lisinopril 5 mg tablet Label Comments: TAKE ONE TABLET BY MOUTH EVERY DAY TAB-A-JENELLE Follow Up/Referrals: Lopez Neves MD [Primary Care Provider] - Stand Alone Forms: [facility] Info Instructions
[2022-10-09 15:19] VITALS: BP 139/69; PULSE 70; RESP 16; TEMP 36; O2SAT 99; BMI 32.4
[2022-10-09 15:23] LABS: Basophils Percent Auto 0.3 % (0.0-3.0); Hematocrit 32.1 % (37.0-53.0); Hemoglobin* 10.3 gm/dL (13.5-17.5); Lymphocytes Percent Auto 15.2 % (20-44); Mean Corpuscular HGB Conc 32 gm/dL (32-36); Mean Corpuscular Hemoglobin 25 pg (26-34); Mean Corpuscular Volume 77 fL (80-100); Monocytes Percent Auto 7.2 % (0.0-11.0); Neutrophils Percent Auto 75.3 % (42.0-72.0); Platelet Count* 391 K/uL (140-440); RDW Coefficient of Variation % 15.1 % (11.5-15.5); Red Blood Count 4.17 m/uL (4.30-5.90); White Blood Count* 12.71 K/uL (4.50-11.00)
[2022-10-09 15:25] VITALS: BP 139/69; PULSE 68; RESP 14; TEMP 36; O2SAT 95
[2022-10-09 15:25] LABS: Slide Review Reflex No
[2022-10-09 15:41] LABS: Chloride* 103 mmol/L (96-114); Potassium* 3.4 mmol/L (3.6-5.1); Sodium* 138 mmol/L (135-149)
[2022-10-09 15:43] LABS: Creatinine* 0.5 mg/dL (0.5-1.5); Est. Creatinine Clearance* 66.46; Estimated Glomerular Filt Rate 113 ml/min
[2022-10-09 15:44] LABS: Blood Urea Nitrogen* 15 mg/dL (7-30); Calcium* 8.6 mg/dL (8.4-10.6); Carbon Dioxide* 24 mmol/L (20-32)
[2022-10-09 15:50] LABS: Glucose* 34 mg/dL (60-115)
--- NOTE | 2022-10-09 16:24 | ED.NURSE ---
Utilized interpretor services intermittently throughout exam, d/t involvement of conversation and minimal language barrier. Pt able to communicate with staff for the most part and declined use of interpretor on occassion.
[2022-10-09 16:35] VITALS: BP 133/67; PULSE 82; O2SAT 96
== END 2022-10-09 17:21 | disposition home or self-care (01) ==
PROVIDERS: Emergency Provider Emergency Medicine Emergency Medical Services; PCP Family Medicine
DX: E11.649 Type 2 diabetes mellitus with hypoglycemia without coma (principal)
CPT/HCPCS: 36415; 80048; 82962; 85025; 99283; 99284; 99285; S5010

== ENCOUNTER 2022-10-10 15:53 | Outpatient (CLI) | payer MEDICAID, SELFPAY | END 2022-10-10 15:54 | disposition home or self-care (01) | LOC: AMB 10-11 01:50 | PROVIDERS: PCP Family Medicine; Visit Provider Family Medicine | DX: E11.649 Type 2 diabetes mellitus with hypoglycemia without coma (principal); R55 Syncope and collapse | CPT/HCPCS: A0425; A0427 ==

== ENCOUNTER 2022-10-10 16:14 | Emergency (ER) | payer MEDICAID, SELFPAY ==
[2022-10-10 16:23] VITALS: O2SAT 99
--- NOTE | 2022-10-10 16:25 | ED.NURSE ---
Adria Parker applied to pt.
--- NOTE | 2022-10-10 16:30 | ED.NURSE ---
Pt arrived by EMS confused and disoriented. Pt not cooperative with cares and combative due to confusion. Restraints applied to pt's wrists and L leg. Pt has R leg amputation, no restraints applied to that limb. Once restraints were applied, IV access established, wet clothing removed completely from pt.
[2022-10-10 16:35] VITALS: BP 125/97
[2022-10-10 16:35] LABS: Basophils Percent Auto 0.3 % (0.0-3.0); Eosinophils Percent Auto 1.2 % (0.0-7.0); Hematocrit 39.3 % (37.0-53.0); Hemoglobin* 11.6 gm/dL (13.5-17.5); Immature Granulocytes Pct Auto 0.7 %; Lymphocytes Percent Auto 39.4 % (20-44); Mean Corpuscular HGB Conc 30 gm/dL (32-36); Mean Corpuscular Hemoglobin 25 pg (26-34); Mean Corpuscular Volume 83 fL (80-100); Monocytes Percent Auto 6.9 % (0.0-11.0); Neutrophils Percent Auto 51.5 % (42.0-72.0); Platelet Count* 484 K/uL (140-440); RDW Coefficient of Variation % 15.4 % (11.5-15.5); Red Blood Count 4.71 m/uL (4.30-5.90); White Blood Count* 22.15 K/uL (4.50-11.00)
--- NOTE | 2022-10-10 16:35 | ED.NURSE ---
Rectal temp obtained, ~82.0F. Unable to chart into vitals.
[2022-10-10 16:41] VITALS: BP 125/97; PULSE 113; O2SAT 97
[2022-10-10 16:45] VITALS: PULSE 113; O2SAT 99
--- NOTE | 2022-10-10 16:45 | ED.NURSE ---
Pt continues to be disoriented and resistant to cares. Only partially able to follow commands from staff. 18fr amor placed per MD order. 10mL catheter balloon. Approx ~400mLs urine in amor bag after placement. UA collected and sent to lab.
[2022-10-10 16:46] LABS: Slide Review Reflex Yes
[2022-10-10] MEDS: DEXTROSE 50 % SYRINGE IVP (16:47)
[2022-10-10] MEDS: 0.9 % SODIUM CHLORIDE 1000 ml 1,000 ML 6000 ML IV ×2 (16:47→17:15)
--- NOTE | 2022-10-10 16:48 | ED.GENADULT ---
HPI - General Adult General Chief complaint: Diabetic Related Problem Stated complaint: Hypoglycemia Time Seen by Provider: 10/10/22 16:26 History of Present Illness HPI narrative: The patient is a 67-year-old male who through an freelance interpreter/translator reports that he is not having pain, he was brought in by EMS. He had apparently been found outside and was down for over an hour outside. His rectal temperature is 27? C here. He has been confused he was somnolent. He was given glucagon in the field, and he was given D50 here his blood sugars in the 200 range now, it was in the 40s. He has had history of hypoglycemic reactions before, he denies any pain as mention, denies recent illness. He is able to mentate some but he still a little confused. His blood sugars improved as mention but is core temperature is very low. Related Data Home Medications Medication Instructions Recorded Confirmed TAB-A-JENELLE 06/15/22 gabapentin 400 mg capsule mg 06/15/22 lisinopril 5 mg tablet mg 06/15/22 metformin 1,000 mg tablet mg 06/15/22 simvastatin 20 mg tablet mg 06/15/22 Allergies Allergy/AdvReac Type Severity Reaction Status Date / Time ibuprofen AdvReac Unknown Verified 06/15/22 16:06 Review of Systems Narrative: Unable to obtain 2nd to patient's cognitive condition, he denies pain, does not know if he took too much insulin. [facility] Medical History DM (diabetes mellitus), type 2 Social History Smoking Status: Never smoker Do you use any of these nicotine containing products: None How often do you have a drink containing alcohol: never AUDIT-C Alcohol total score: 0 Non-prescribed substance use: denies use Exam Narrative: Exam Narrative: Objective: Primary survey shows the patient to be alert he does respond he does answer some questions. But he appears just mildly confused. 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 HEENT is unremarkable Neck nontender Chest abdomen pelvis unremarkable Extremities are cool as mention be moves all extremities, His core rectal temperature is 27?, 82? F, his vital signs otherwise unremarkable. Const: Vital Signs, click to edit/add: Vital Signs - 24 hr 10/10/22 16:41 10/10/22 16:45 10/10/22 16:35 Pulse Rate [Pulse Oximeter] 113 H 113 H Blood Pressure [Ri ght Upper Arm] 125/97 H 125/97 H Pulse Oximetry 97 99 Oxygen Delivery Me thod Room Air Room Air Course Vital Signs Vital signs: Initial Vital Signs Blood Pressure 125/97 H 10/10/22 16:35 Blood Pressure Mean 106 10/10/22 16:35 Blood Pressure Position Supine 10/10/22 16:35 Vital Signs Blood Pressure 125/97 H 10/10/22 16:35 Pulse Rate 113 H 10/10/22 16:45 Blood Pressure 125/97 H 10/10/22 16:41 Pulse Oximetry 99 10/10/22 16:45 Oxygen Delivery Method 10/10/22 16:45 Medical Decision Making MDM Narrative Medical decision making narrative: Patient is a 67 year year old male with diabetes with history of hypoglycemic reactions, he was down outside by were bystanders report for about an hour. He severely hypothermic. He is hemodynamically stable. He has had some Bear Hugger and heat lamp rewarming as well as warm IV fluids. Quevedo catheter be placed, laboratories be obtained, hemodynamic monitoring. Discussed with Dr. Sundeep HAHN at [facility] who accepts in transfer, for severe hypothermia, the patient will be transferred via [facility]. Patient is in stable condition for transfer. Patient will get IV fluid as mention and recent his blood sugar has improved. Transfer via [facility] for [facility] transfer sheets completed. Addendum: [facility] here for transfer the patient he was informed of transfer to [facility] via the freelance interpreter/translator. He consented to this. His lactate is elevated at 19, he has been given a L of fluid will get a 2 L this of warm fluid saline, started D5 normal saline as well at 1:25 a.m. an hour. [facility] is here. Patient is hemodynamically stable. Dr. Urbano has accepted at [facility], transfer sheets completed. Have given Zosyn and tetanus shot as well, as the patient may have aspirated while down. Lab Data Labs: Lab Results 10/10/22 10/10/22 10/10/22 Range/Units 16:27 16:27 16:27 WBC 22.15 H (4.50-11.00) K/uL RBC 4.71 (4.30-5.90) m/uL Hgb 11.6 L (13.5-17.5) gm/dL Hct 39.3 (37.0-53.0) % MCV 83 (80-100) fL MCH 25 L (26-34) pg MCHC 30 L (32-36) gm/dL RDW Coeff of Kiesha 15.4 (11.5-15.5) % Plt Count 484 H (140-440) K/uL Neut % (Auto) 51.5 (42.0-72.0) % Lymph % (Auto) 39.4 (20-44) % [place] % (Auto) 6.9 (0.0-11.0) % Eos % (Auto) 1.2 (0.0-7.0) % Baso % (Auto) 0.3 (0.0-3.0) % Neut # (Auto) 11.40 H (1.7-7.0) K/uL Lymph # (Auto) 8.70 H (0.90-2.90) K/uL [place] # (Auto) 1.50 H (0.00-0.90) K/UL Eos # (Auto) 0.30 (0.00-0.50) K/uL Baso # (Auto) 0.10 (0.00-0.30) K/uL INR 1.14 H (0.91-1.10) APTT 31 (23-33) Seconds Sodium 143 (135-149) mmol/L Potassium 4.4 (3.6-5.1) mmol/L Chloride 103 (96-114) mmol/L Carbon Dioxide 10 L (20-32) mmol/L BUN 13 (7-30) mg/dL Creatinine 0.8 (0.5-1.5) mg/dL Estimated GFR 98 ml/min Glucose 87 (60-115) mg/dL Lactate (0.5-1.9) mmol/L Calcium 9.7 (8.4-10.6) mg/dL Total Bilirubin 0.4 (0.1-1.5) mg/dL Direct Bilirubin 0.3 (0.0-0.5) mg/dL AST 40 H (12-35) U/L ALT 29 (4-50) U/L Alkaline Phosphatase 91 (40-150) U/L Troponin I < 0.01 L (0.01-0.04) ng/mL C-Reactive Protein < 0.5 L (0.5-1.0) mg/dL NT-Pro-B Natriuret Pep 58 pg/mL Total Protein 8.3 (6.0-8.3) g/dL Albumin 5.1 H (3.3-5.0) g/dL Acetaminophen < 10.0 L (10.0-30.0) ug/mL Ur Drug Screen Comment Ethyl Alcohol < 0.01 L (0.01-0.03) % 10/10/22 10/10/22 Range/Units 16:27 16:45 WBC (4.50-11.00) K/uL RBC (4.30-5.90) m/uL Hgb (13.5-17.5) gm/dL Hct (37.0-53.0) % MCV (80-100) fL MCH (26-34) pg MCHC (32-36) gm/dL RDW Coeff of Kiesha (11.5-15.5) % Plt Count (140-440) K/uL Neut % (Auto) (42.0-72.0) % Lymph % (Auto) (20-44) % [place] % (Auto) (0.0-11.0) % Eos % (Auto) (0.0-7.0) % Baso % (Auto) (0.0-3.0) % Neut # (Auto) (1.7-7.0) K/uL Lymph # (Auto) (0.90-2.90) K/uL [place] # (Auto) (0.00-0.90) K/UL Eos # (Auto) (0.00-0.50) K/uL Baso # (Auto) (0.00-0.30) K/uL INR (0.91-1.10) APTT (23-33) Seconds Sodium (135-149) mmol/L Potassium (3.6-5.1) mmol/L Chloride (96-114) mmol/L Carbon Dioxide (20-32) mmol/L BUN (7-30) mg/dL Creatinine (0.5-1.5) mg/dL Estimated GFR ml/min Glucose (60-115) mg/dL Lactate 19.0 H* (0.5-1.9) mmol/L Calcium (8.4-10.6) mg/dL Total Bilirubin (0.1-1.5) mg/dL Direct Bilirubin (0.0-0.5) mg/dL AST (12-35) U/L ALT (4-50) U/L Alkaline Phosphatase (40-150) U/L Troponin I (0.01-0.04) ng/mL C-Reactive Protein (0.5-1.0) mg/dL NT-Pro-B Natriuret Pep pg/mL Total Protein (6.0-8.3) g/dL Albumin (3.3-5.0) g/dL Acetaminophen (10.0-30.0) ug/mL Ur Drug Screen Comment See Note Ethyl Alcohol (0.01-0.03) % Discharge Plan Discharge Clinical Impression: Hypoglycemic event in diabetes, Hypothermia Patient Disposition: Xfer Other Discharge Location: [facility] Additional Instructions: Patient will be sent via [facility] for trauma assessment, and treatment of hypothermia this severe as well as hyperglycemia. Prescriptions: No Action gabapentin 400 mg capsule Label Comments: TAKE TWO CAPSULES BY MOUTH THREE TIMES A DAY simvastatin 20 mg tablet Label Comments: TAKE ONE TABLET BY MOUTH AT BEDTIME metformin 1,000 mg tablet Label Comments: TAKE ONE TABLET BY MOUTH TWICE A DAY WITH MEALS lisinopril 5 mg tablet Label Comments: TAKE ONE TABLET BY MOUTH EVERY DAY TAB-A-JENELLE Stand Alone Forms: [facility] Info Instructions
[2022-10-10 16:49] LABS: Albumin* 5.1 g/dL (3.3-5.0); Chloride* 103 mmol/L (96-114); Sodium* 143 mmol/L (135-149)
[2022-10-10 16:50] LABS: INR 1.14 (0.91-1.10); Potassium* 4.4 mmol/L (3.6-5.1); Prothrombin Time 15.3 Seconds
[2022-10-10 16:51] LABS: Partial Thromboplastin Time* 31 Seconds (23-33)
[2022-10-10 16:52] LABS: Creatinine* 0.8 mg/dL (0.5-1.5); Estimated Glomerular Filt Rate 98 ml/min
[2022-10-10 16:53] LABS: Alanine Aminotransferase* 29 U/L (4-50); Alkaline Phosphatase* 91 U/L (40-150); Aspartate Amino Transferase* 40 U/L (12-35); Bilirubin Direct* 0.3 mg/dL (0.0-0.5); Bilirubin Total* 0.4 mg/dL (0.1-1.5); Blood Urea Nitrogen* 13 mg/dL (7-30); Calcium* 9.7 mg/dL (8.4-10.6); Carbon Dioxide* 10 mmol/L (20-32); Glucose* 87 mg/dL (60-115); Total Protein* 8.3 g/dL (6.0-8.3)
--- NOTE | 2022-10-10 16:53 | ED.NURSE ---
dr bowens aware of lactate of 19. [facility] was called. [place] [facility] [place]
--- NOTE | 2022-10-10 17:00 | ED.NURSE ---
Pt more responsive and now able to follow staff commands. Pt alert to self, not oriented to place/date/situation. Pt cooperative with 2nd IV line placement. Restraints discontinued at this point now that pt is alert enough to follow commands and cooperate with care.
[2022-10-10 17:04] VITALS: PULSE 130; O2SAT 96
[2022-10-10 17:07] LABS: Acetaminophen* < 10.0 ug/mL (10.0-30.0); C Reactive Protein* < 0.5 mg/dL (0.5-1.0); Ethanol* < 0.01 % (0.01-0.03); NT Pro B Type NatriureticPept* 58 pg/mL; Troponin I* < 0.01 ng/mL (0.01-0.04)
[2022-10-10 17:08] LABS: Appearance Urine Clear (Clear); Bilirubin Urine Negative (Negative); Blood Urine Negative (Negative); Color Urine Yellow (Yellow); Glucose Urine Negative (Negative); Ketones Urine Negative (Negative); Leukocyte Esterase Urine Negative (Negative); Nitrite Urine Negative (Negative); Protein Urine Negative (Negative); Urobilinogen Urine 0.2 (0.2-1.0)
--- NOTE | 2022-10-10 17:10 | ED.NURSE ---
BG recheck [id number]. notified.
[2022-10-10] MEDS: TETANUS/DIPHTH/PERTUSSIS 0.5 ML SYRINGE IM (17:13)
[2022-10-10] MEDS: PIPERACILLIN/TAZOBACTAM 3.375 GM in 0.9 % SODIUM CHLORIDE Mini-bag 100 ML IVPB (17:13)
[2022-10-10] MEDS: 5 % DEXTROSE/0.9% SOD CHLORIDE 1,000 ML 125 ML IV (17:15)
[2022-10-10 17:18] LABS: Amphetamine Screen Urine Negative (Negative); Barbiturate Screen Urine Negative (Negative); Benzodiazepines Screen Urine Negative (Negative); Cannabinoid Screen Urine Negative (Negative); Cocaine Screen Urine Negative (Negative); Methadone Screen Urine Negative (Negative); Methamphetamines Screen Urine Negative (Negative); Oxycodone Screen Urine Negative (Negative); Phencyclidine Screen Urine Negative (Negative); Tricyclic Antidepressant Urine Negative (Negative)
[2022-10-10 17:20] VITALS: BP 113/60; PULSE 123; O2SAT 99
--- NOTE | 2022-10-10 17:20 | ED.NURSE ---
Pt leaves ED by helicopter.
[2022-10-10 17:26] LABS: Slide Review Acceptable Review (Acceptable)
[2022-10-10 17:27] LABS: Opiate Screen Urine POSITIVE (Negative)
--- NOTE | 2022-10-10 17:35 | ED.NURSE ---
Report called to [facility] JEYSON Holley.
[2022-10-10 17:54] LABS: RBC Urine 0-2 (0-2); WBC Urine 0-2 (0-5)
[2022-10-10 18:29] LABS: PCR FLU A Negative PCR FLU A (Negative); PCR FLU B Negative PCR FLU B (Negative); PCR RSV Negative PCR RSV (Negative)
[2022-10-10 18:38] LABS: SARS PCR* Negative SARS-CoV-2 (Negative)
== END 2022-10-10 17:20 | disposition other institution (70) ==
PROVIDERS: Emergency Provider Family Medicine; PCP Family Medicine
DX: E11.649 Type 2 diabetes mellitus with hypoglycemia without coma (principal); T68.XXXA Hypothermia, initial encounter
CPT/HCPCS: 36415; 80048; 80076; 80143; 80306; 81001; 82077; 82962; 83605; 83880; 84484; 85025; 85610; 85730; 86140; 87040; 87086; 87502; 87634; 87635; 90715; 94761; 96365; 96372; 99285; 99291; J2543; J7030; J7042